=== PATIENT | female | born 1955 | race Caucasian/White ===

== ENCOUNTER 2017-07-28 13:53 | Inpatient (IN) ==
[2017-07-28] MEDS ORDERED: HYDROcodone/CHLORPHENIRAMINE ER 5 ML UDCUP PO ONE ×2 (14:36→14:53)
[2017-07-28] MEDS ORDERED: ALBUTEROL/IPRATROPIUM 3 ML NEB RESP TX STA (14:36)
[2017-07-28 15:07] LABS: Basophils % 0.1 % (0.0-0.8); Hematocrit 33.8 VOL% (35.7-47.0); Hemoglobin 11.1 GM/DL (12.0-16.0); Immature Granulocytes % 0.5 %; Immature Granulocytes Absolute 0.12 #; Lymphocytes # 0.5 10*3/uL (1.4-4.0); Lymphocytes % 2.2 % (21.3-54.2); Mean Corpuscular HGB Conc 32.8 GM/DL (32-36); Mean Corpuscular Hemoglobin 31 PG (27-34); Mean Corpuscular Volume 93.1 FL (87-102); Mean Platelet Volume 9.3 FL (9.6-12.0); Monocytes # 1.3 10*3/uL (0.11-0.8); Monocytes % 5.8 % (1.7-12.7); Neutrophils # 20.9 10*3/uL (1.4-7.4); Neutrophils % 91.4 % (38.7-73.9); Platelet Count 396 T/CUMM (130-400); Red Blood Count 3.63 MC/CUMM (3.8-5.5); Red Cell Distribution Width 13.4 % (9.3-17.3); White Blood Count 22.9 T/CUMM (4-12)
[2017-07-28 15:12] LABS: Albumin 3.2 G/DL (3.4-5.0); Bilirubin,Total 0.4 MG/DL (0.2-1.0); Calcium 9.1 MG/DL (8.5-10.1); Osmolality,Calculated 280.7 MOS/KG (273-304); Potassium 3.7 MMOL/L (3.5-5.1); Total Protein 7.7 G/DL (6.4-8.3)
[2017-07-28] MEDS ORDERED: cefTRIAXone 1,000 MG in SODIUM CHLORIDE 0.9% 100 ML IV STA (15:17)
[2017-07-28] MEDS ORDERED: ONDANSETRON 4 MG/2 ML VIAL IV PRN (15:46)
[2017-07-28] MEDS ORDERED: SODIUM CHLORIDE 0.9% 1,000 ML IV ONE (15:49)
[2017-07-28] MEDS ORDERED: cefTRIAXone 1,000 MG VIAL ONE (16:04)
[2017-07-28] MEDS ORDERED: cefTRIAXone 1,000 MG in SYRINGE 1 EACH IV SCH (17:00)
[2017-07-28] MEDS: ALBUTEROL/IPRATROPIUM 3 ML NEB RESP TX SCH (20:10)
[2017-07-28] MEDS: SODIUM CHLORIDE 0.9% 1,000 ML IV SCH (23:47)
[2017-07-29] MEDS: ALBUTEROL/IPRATROPIUM 3 ML NEB RESP TX SCH ×5 (00:39→23:49)
[2017-07-29] MEDS: SODIUM CHLORIDE 0.9% 1,000 ML IV SCH ×3 (03:55→19:03)
[2017-07-29 06:35] LABS: Basophils % 0.1 % (0.0-0.8); Eosinophils % 0.2 % (0.00-10.9); Hematocrit 29.1 VOL% (35.7-47.0); Hemoglobin 9.6 GM/DL (12.0-16.0); Immature Granulocytes % 0.4 %; Immature Granulocytes Absolute 0.06 #; Lymphocytes % 7.1 % (21.3-54.2); Mean Corpuscular Hemoglobin 31 PG (27-34); Mean Corpuscular Volume 92.7 FL (87-102); Mean Platelet Volume 9.3 FL (9.6-12.0); Monocytes # 0.9 10*3/uL (0.11-0.8); Monocytes % 6.4 % (1.7-12.7); Neutrophils # 11.5 10*3/uL (1.4-7.4); Neutrophils % 85.8 % (38.7-73.9); Platelet Count 338 T/CUMM (130-400); Red Blood Count 3.14 MC/CUMM (3.8-5.5); Red Cell Distribution Width 14.1 % (9.3-17.3); White Blood Count 13.4 T/CUMM (4-12)
[2017-07-29 06:58] LABS: PT Patient Result 10.3 SECS; Partial Thromboplastin Time 30.8 SECS (0-40)
[2017-07-29 07:04] LABS: Calcium 8.4 MG/DL (8.5-10.1); Osmolality,Calculated 282.3 MOS/KG (273-304); Potassium 3.5 MMOL/L (3.5-5.1)
[2017-07-29 07:15] LABS: Thyroid Stimulating Hormone 0.605 uIU/ml (0.358-3.74)
[2017-07-29] MEDS: PANTOPRAZOLE 40 MG TABLET PO SCH ×2 (09:49→11:26)
[2017-07-29] MEDS: cefTRIAXone 1,000 MG in SYRINGE 1 EACH IV SCH (18:54)
[2017-07-30] MEDS: SODIUM CHLORIDE 0.9% 1,000 ML IV SCH ×3 (03:08→19:41)
[2017-07-30] MEDS: ALBUTEROL/IPRATROPIUM 3 ML NEB RESP TX SCH ×3 (07:23→20:37)
[2017-07-30] MEDS: PANTOPRAZOLE 40 MG TABLET PO SCH (12:36)
[2017-07-30] MEDS: DOXYCYCLINE HYCLATE INJ 100 MG in SODIUM CHLORIDE 0.9% 100 ML IV SCH (15:44)
[2017-07-30] MEDS: cefTRIAXone 1,000 MG in SYRINGE 1 EACH IV SCH (17:15)
[2017-07-31] MEDS: DOXYCYCLINE HYCLATE INJ 100 MG in SODIUM CHLORIDE 0.9% 100 ML IV SCH ×2 (00:06→13:28)
[2017-07-31] MEDS: ALBUTEROL/IPRATROPIUM 3 ML NEB RESP TX SCH ×4 (00:48→19:28)
[2017-07-31] MEDS: SODIUM CHLORIDE 0.9% 1,000 ML IV SCH ×4 (02:18→22:20)
[2017-07-31] MEDS: PANTOPRAZOLE 40 MG TABLET PO SCH (09:38)
[2017-07-31] MEDS: cefTRIAXone 1,000 MG in SYRINGE 1 EACH IV SCH ×2 (09:43→17:19)
[2017-07-31 11:14] LABS: PT Patient Result 10.5 SECS; Partial Thromboplastin Time 31.6 SECS (0-40)
[2017-07-31] MEDS: ACETYLCYSTEINE 20% 800 MG/4 ML VIAL RESP TX SCH ×2 (13:07→19:28)
[2017-08-01] MEDS: ALBUTEROL/IPRATROPIUM 3 ML NEB RESP TX SCH ×4 (00:30→19:54)
[2017-08-01] MEDS: ACETYLCYSTEINE 20% 800 MG/4 ML VIAL RESP TX SCH ×4 (00:30→20:48)
[2017-08-01] MEDS: DOXYCYCLINE HYCLATE INJ 100 MG in SODIUM CHLORIDE 0.9% 100 ML IV SCH ×2 (00:37→12:45)
[2017-08-01] MEDS: ALBUTEROL 2.5 MG/3 ML NEB RESP TX PRN (03:41)
[2017-08-01 06:26] LABS: Calcium 8.4 MG/DL (8.5-10.1); Osmolality,Calculated 279.3 MOS/KG (273-304); Potassium 3.1 MMOL/L (3.5-5.1)
[2017-08-01] MEDS: SODIUM CHLORIDE 0.9% 1,000 ML IV SCH (06:42)
[2017-08-01] MEDS ORDERED: LIDOCAINE 2% 20 ML VIAL RESP TX ONE (07:00)
[2017-08-01] MEDS ORDERED: ATROPINE 0.4 MG/1 ML VIAL IM ONE (07:00)
[2017-08-01] MEDS ORDERED: MIDAZOLAM 2 MG/2 ML VIAL IV ONE (07:00)
[2017-08-01] MEDS ORDERED: LIDOCAINE 1% 20 ML VIAL MISC INJ ONE (07:00)
[2017-08-01] MEDS ORDERED: POTASSIUM CHLORIDE RIDER 10 MEQ in PREMIX 1 EACH IV PRN (07:03)
[2017-08-01] MEDS ORDERED: MIDAZOLAM 2 MG/2 ML VIAL ONE (07:25)
[2017-08-01] MEDS: POTASSIUM CHLORIDE 20 MEQ TABLET PO PRN ×3 (07:25→13:00)
[2017-08-01] MEDS ORDERED: FUROSEMIDE 20 MG/2 ML VIAL IV ONE (08:32)
[2017-08-01] MEDS: CEFEPIME 1,000 MG in SYRINGE 1 EACH IV SCH ×2 (09:45→21:01)
[2017-08-01] MEDS: VANCOMYCIN INJ 1,250 MG in SODIUM CHLORIDE 0.9% 250 ML IV SCH ×2 (09:50→22:04)
[2017-08-01] MEDS: PANTOPRAZOLE 40 MG TABLET PO SCH (10:30)
[2017-08-02] MEDS: DOXYCYCLINE HYCLATE INJ 100 MG in SODIUM CHLORIDE 0.9% 100 ML IV SCH ×2 (00:07→12:10)
[2017-08-02] MEDS: ALBUTEROL/IPRATROPIUM 3 ML NEB RESP TX SCH ×3 (02:16→13:45)
[2017-08-02] MEDS: ACETYLCYSTEINE 20% 800 MG/4 ML VIAL RESP TX SCH (02:17)
[2017-08-02] MEDS ORDERED: POTASSIUM CHLORIDE 20 MEQ TABLET PO ONE (08:32)
[2017-08-02] MEDS: CEFEPIME 1,000 MG in SYRINGE 1 EACH IV SCH ×2 (09:28→21:24)
[2017-08-02] MEDS: FUROSEMIDE 20 MG/2 ML VIAL IV SCH (09:29)
[2017-08-02] MEDS: PANTOPRAZOLE 40 MG TABLET PO SCH (09:29)
[2017-08-02] MEDS: methylPREDNISolone SOD SUC 40 MG/1 ML VIAL IV SCH ×2 (09:29→21:33)
[2017-08-02] MEDS: VANCOMYCIN INJ 1,250 MG in SODIUM CHLORIDE 0.9% 250 ML IV SCH ×2 (09:37→21:25)
[2017-08-02] MEDS ORDERED: ASPIRIN 325 MG TABLET ONE (14:40)
[2017-08-02] MEDS ORDERED: NITROGLYCERIN SL 0.4 MG TABLET SL ONE (14:40)
[2017-08-02 15:07] LABS: Basophils % 0.1 % (0.0-0.8); Hematocrit 32.1 VOL% (35.7-47.0); Hemoglobin 10.9 GM/DL (12.0-16.0); Immature Granulocytes % 1.3 %; Immature Granulocytes Absolute 0.22 #; Lymphocytes # 0.4 10*3/uL (1.4-4.0); Lymphocytes % 2.4 % (21.3-54.2); Mean Corpuscular Hemoglobin 31 PG (27-34); Mean Corpuscular Volume 89.9 FL (87-102); Mean Platelet Volume 8.7 FL (9.6-12.0); Monocytes # 0.3 10*3/uL (0.11-0.8); Monocytes % 1.9 % (1.7-12.7); Neutrophils # 15.4 10*3/uL (1.4-7.4); Neutrophils % 94.3 % (38.7-73.9); Platelet Count 501 T/CUMM (130-400); Red Blood Count 3.57 MC/CUMM (3.8-5.5); Red Cell Distribution Width 14.1 % (9.3-17.3); White Blood Count 16.4 T/CUMM (4-12)
[2017-08-02] MEDS ORDERED: methylPREDNISolone SOD SUC 125 MG/2 ML VIAL ONE (15:08)
[2017-08-02 15:11] LABS: ABG Base Excess -1.3 MMOL/L (-2.5-2.5); ABG HCO3 17.9 MMOL/L (20-26); ABG PO2 77.4 MM HG (80-95); ABG TCO2 18.5 MMOL/L (23-27)
[2017-08-02 15:12] LABS: ABG Oxygen Saturation 97.2 % (95-100)
[2017-08-02 15:13] LABS: ABG PCO2 19.5 MM HG (35-48)
[2017-08-02] MEDS ORDERED: AMINOPHYLLINE 250 MG in SODIUM CHLORIDE 0.9% 100 ML IV ONE (15:14)
[2017-08-02] MEDS: ALBUTEROL 2.5 MG/3 ML NEB RESP TX PRN (15:14)
[2017-08-02] MEDS ORDERED: methylPREDNISolone SOD SUC 125 MG/2 ML VIAL IV SCH (15:30)
[2017-08-02] MEDS: MONTELUKAST 10 MG TABLET PO SCH ×2 (15:31→21:25)
[2017-08-02] MEDS: methylPREDNISolone SOD SUC 125 MG/2 ML VIAL IV SCH (15:32)
[2017-08-02 15:42] LABS: Band Neutrophils 1 % (0-10); Lymphocytes 1 % (20-55); Platelet Estimate Increased; Segmented Neutrophils 98 % (50-85)
[2017-08-02 15:43] LABS: Total Cells Counted 100
[2017-08-02 16:50] LABS: Albumin 2.4 G/DL (3.4-5.0); Bilirubin,Total 0.6 MG/DL (0.2-1.0); Calcium 8.4 MG/DL (8.5-10.1); Osmolality,Calculated 283.3 MOS/KG (273-304); Potassium 3.6 MMOL/L (3.5-5.1); Total Protein 6.2 G/DL (6.4-8.3); Troponin I Only < 0.015 NG/ML (0.00-0.045)
[2017-08-02] MEDS: AMINOPHYLLINE 500 MG in SODIUM CHLORIDE 0.9% 480 ML IV SCH (18:04)
[2017-08-02] MEDS: DORNASE ALFA 2.5 MG/2.5 ML VIAL RESP TX SCH (19:41)
[2017-08-02] MEDS: IPRATROPIUM 500 MCG/2.5 ML NEB RESP TX SCH (19:41)
[2017-08-02] MEDS: FLUoxetine 20 MG CAPSULE PO SCH ×2 (21:25→21:32)
[2017-08-02] MEDS: QUEtiapine 25 MG TABLET PO SCH (21:25)
[2017-08-03] MEDS: IPRATROPIUM 500 MCG/2.5 ML NEB RESP TX SCH ×4 (00:22→20:32)
[2017-08-03] MEDS: methylPREDNISolone SOD SUC 125 MG/2 ML VIAL IV SCH ×2 (01:54→08:37)
[2017-08-03] MEDS: DOXYCYCLINE HYCLATE INJ 100 MG in SODIUM CHLORIDE 0.9% 100 ML IV SCH ×3 (01:54→19:01)
[2017-08-03 03:22] LABS: Basophils % 0.1 % (0.0-0.8); Hematocrit 29.8 VOL% (35.7-47.0); Hemoglobin 9.8 GM/DL (12.0-16.0); Immature Granulocytes % 1.2 %; Immature Granulocytes Absolute 0.23 #; Lymphocytes # 0.5 10*3/uL (1.4-4.0); Lymphocytes % 2.8 % (21.3-54.2); Mean Corpuscular HGB Conc 32.9 GM/DL (32-36); Mean Corpuscular Hemoglobin 30 PG (27-34); Mean Corpuscular Volume 91.4 FL (87-102); Mean Platelet Volume 8.9 FL (9.6-12.0); Monocytes # 0.6 10*3/uL (0.11-0.8); Monocytes % 3.4 % (1.7-12.7); Neutrophils # 17.3 10*3/uL (1.4-7.4); Neutrophils % 92.5 % (38.7-73.9); Platelet Count 515 T/CUMM (130-400); Red Blood Count 3.26 MC/CUMM (3.8-5.5); Red Cell Distribution Width 14.1 % (9.3-17.3); White Blood Count 18.7 T/CUMM (4-12)
[2017-08-03 03:49] LABS: Calcium 8.5 MG/DL (8.5-10.1); Osmolality,Calculated 284.1 MOS/KG (273-304); Potassium 3.8 MMOL/L (3.5-5.1)
[2017-08-03 03:51] LABS: ABG Base Excess -1.1 MMOL/L (-2.5-2.5); ABG HCO3 21.5 MMOL/L (20-26); ABG Oxygen Saturation 91.9 % (95-100); ABG PCO2 29.3 MM HG (35-48); ABG PH 7.484 (7.35-7.45); ABG PO2 58.7 MM HG (80-95); ABG TCO2 22.4 MMOL/L (23-27); Allen Test Positive; Pt O2 Delivery Device Simple Mask
[2017-08-03 04:40] LABS: Calcium 8.5 MG/DL (8.5-10.1); Potassium 3.8 MMOL/L (3.5-5.1)
[2017-08-03 05:07] LABS: Hypochromasia 1+; Lymphocytes 5 % (20-55); Segmented Neutrophils 92 % (50-85); Total Cells Counted 100
[2017-08-03 05:08] LABS: Platelet Estimate Increased
[2017-08-03] MEDS: LEVOTHYROXINE 150 MCG TABLET PO SCH (06:38)
[2017-08-03] MEDS: DORNASE ALFA 2.5 MG/2.5 ML VIAL RESP TX SCH ×2 (08:10→20:36)
[2017-08-03] MEDS: MONTELUKAST 10 MG TABLET PO SCH ×2 (08:32→21:23)
[2017-08-03] MEDS: CEFEPIME 1,000 MG in SYRINGE 1 EACH IV SCH ×2 (08:32→21:26)
[2017-08-03] MEDS: RIVAROXABAN 20 MG TABLET PO SCH (08:32)
[2017-08-03] MEDS: PANTOPRAZOLE 40 MG TABLET PO SCH (08:32)
[2017-08-03] MEDS: FLUoxetine 20 MG CAPSULE PO SCH ×2 (08:32→08:52)
[2017-08-03] MEDS: QUEtiapine 25 MG TABLET PO SCH ×2 (08:32→22:28)
[2017-08-03] MEDS: FUROSEMIDE 20 MG/2 ML VIAL IV SCH (08:36)
[2017-08-03] MEDS: methylPREDNISolone SOD SUC 40 MG/1 ML VIAL IV SCH ×2 (08:51→21:23)
[2017-08-03] MEDS: CLORAZEPATE 3.75 MG TABLET PO PRN ×2 (10:49→16:00)
[2017-08-03] MEDS: VANCOMYCIN INJ 1,250 MG in SODIUM CHLORIDE 0.9% 250 ML IV SCH ×2 (10:50→23:00)
[2017-08-03] MEDS ORDERED: FLUoxetine 20 MG CAPSULE PO ONE (11:00)
[2017-08-03] MEDS: oxyCODONE/ACETAMINOPHEN 5-325 MG TABLET PO PRN ×2 (18:12→21:22)
[2017-08-03] MEDS: ChlordiazePOXIDE/CLIDINIUM 5-2.5 MG CAPSULE PO SCH ×2 (18:23→22:27)
[2017-08-03] MEDS ORDERED: NON-FORMULARY MEDICATION (Morphine Sulfate/Naltrexone [Embeda 20/0.8] 1 CAPSULE) PO SCH (21:00)
[2017-08-03] MEDS: QUEtiapine 100 MG TABLET PO SCH (21:23)
[2017-08-03] MEDS: CYCLOBENZAPRINE 10 MG TABLET PO SCH (22:27)
[2017-08-03] MEDS: ZALEPLON 5 MG CAPSULE PO SCH (22:28)
[2017-08-04] MEDS: IPRATROPIUM 500 MCG/2.5 ML NEB RESP TX SCH ×4 (00:48→20:57)
[2017-08-04] MEDS: AMINOPHYLLINE 500 MG in SODIUM CHLORIDE 0.9% 480 ML IV SCH ×2 (04:52→08:50)
[2017-08-04 05:31] LABS: Calcium 8.7 MG/DL (8.5-10.1); Osmolality,Calculated 290.8 MOS/KG (273-304); Potassium 3.6 MMOL/L (3.5-5.1)
[2017-08-04] MEDS: DOXYCYCLINE HYCLATE INJ 100 MG in SODIUM CHLORIDE 0.9% 100 ML IV SCH ×2 (06:08→18:03)
[2017-08-04] MEDS: LEVOTHYROXINE 150 MCG TABLET PO SCH (06:08)
[2017-08-04] MEDS: QUEtiapine 25 MG TABLET PO SCH ×2 (08:50→21:42)
[2017-08-04] MEDS: MONTELUKAST 10 MG TABLET PO SCH ×2 (08:50→21:41)
[2017-08-04] MEDS: ATORVASTATIN 40 MG TABLET PO SCH (08:50)
[2017-08-04] MEDS: BENZONATATE 100 MG CAPSULE PO SCH ×3 (08:51→21:38)
[2017-08-04] MEDS: POTASSIUM CHLORIDE 20 MEQ TABLET PO PRN ×2 (08:51→12:23)
[2017-08-04] MEDS: FLUoxetine 20 MG CAPSULE PO SCH (08:51)
[2017-08-04] MEDS: RIVAROXABAN 20 MG TABLET PO SCH (08:51)
[2017-08-04] MEDS: ChlordiazePOXIDE/CLIDINIUM 5-2.5 MG CAPSULE PO SCH ×4 (08:52→21:42)
[2017-08-04] MEDS: ALBUTEROL 2 MG TABLET PO SCH ×2 (08:52→15:34)
[2017-08-04] MEDS: ACETAMINOPHEN 325 MG TABLET PO PRN ×2 (08:52→18:30)
[2017-08-04] MEDS: HYDROcodone/CHLORPHENIRAMINE ER 5 ML UDCUP PO SCH ×2 (08:53→21:48)
[2017-08-04] MEDS: methylPREDNISolone SOD SUC 40 MG/1 ML VIAL IV SCH ×2 (08:56→21:40)
[2017-08-04] MEDS: CEFEPIME 1,000 MG in SYRINGE 1 EACH IV SCH ×2 (08:56→21:34)
[2017-08-04] MEDS ORDERED: PANTOPRAZOLE 40 MG TABLET PO SCH (09:00)
[2017-08-04] MEDS ORDERED: MONTELUKAST 10 MG TABLET PO SCH (09:00)
[2017-08-04] MEDS: DORNASE ALFA 2.5 MG/2.5 ML VIAL RESP TX SCH ×2 (09:28→20:57)
[2017-08-04] MEDS: VANCOMYCIN INJ 1,250 MG in SODIUM CHLORIDE 0.9% 250 ML IV SCH ×2 (09:32→21:52)
[2017-08-04 21:11] LABS: Mycoplasma pneumoniae PCR Negative; Specimen Source BRONCHIAL WASHING
[2017-08-04] MEDS: oxyCODONE/ACETAMINOPHEN 5-325 MG TABLET PO PRN (21:39)
[2017-08-04] MEDS: QUEtiapine 100 MG TABLET PO SCH (21:41)
[2017-08-04] MEDS: CYCLOBENZAPRINE 10 MG TABLET PO SCH (21:42)
[2017-08-04] MEDS: ZALEPLON 5 MG CAPSULE PO SCH (21:42)
[2017-08-05] MEDS: ALBUTEROL 2 MG TABLET PO SCH ×4 (00:39→22:04)
[2017-08-05] MEDS: IPRATROPIUM 500 MCG/2.5 ML NEB RESP TX SCH ×4 (01:03→19:33)
[2017-08-05 05:01] LABS: Albumin 2.2 G/DL (3.4-5.0); Bilirubin,Total 0.8 MG/DL (0.2-1.0); Calcium 8.5 MG/DL (8.5-10.1); Osmolality,Calculated 296.6 MOS/KG (273-304); Potassium 3.7 MMOL/L (3.5-5.1); Total Protein 5.7 G/DL (6.4-8.3)
[2017-08-05] MEDS: DOXYCYCLINE HYCLATE INJ 100 MG in SODIUM CHLORIDE 0.9% 100 ML IV SCH ×2 (06:11→17:57)
[2017-08-05] MEDS: LEVOTHYROXINE 150 MCG TABLET PO SCH (06:11)
[2017-08-05] MEDS: oxyCODONE/ACETAMINOPHEN 5-325 MG TABLET PO PRN ×2 (06:11→19:56)
[2017-08-05] MEDS: DORNASE ALFA 2.5 MG/2.5 ML VIAL RESP TX SCH ×2 (07:15→19:33)
[2017-08-05] MEDS: ATORVASTATIN 40 MG TABLET PO SCH (08:26)
[2017-08-05] MEDS: BENZONATATE 100 MG CAPSULE PO SCH ×3 (08:26→21:05)
[2017-08-05] MEDS: QUEtiapine 25 MG TABLET PO SCH ×2 (08:26→21:06)
[2017-08-05] MEDS: RIVAROXABAN 20 MG TABLET PO SCH (08:26)
[2017-08-05] MEDS: FLUoxetine 20 MG CAPSULE PO SCH (08:26)
[2017-08-05] MEDS: HYDROcodone/CHLORPHENIRAMINE ER 5 ML UDCUP PO SCH ×2 (08:27→21:06)
[2017-08-05] MEDS: ChlordiazePOXIDE/CLIDINIUM 5-2.5 MG CAPSULE PO SCH ×4 (08:28→21:06)
[2017-08-05] MEDS: MONTELUKAST 10 MG TABLET PO SCH ×2 (08:30→21:06)
[2017-08-05] MEDS: CEFEPIME 1,000 MG in SYRINGE 1 EACH IV SCH ×2 (08:31→21:06)
[2017-08-05] MEDS: AMINOPHYLLINE 500 MG in SODIUM CHLORIDE 0.9% 480 ML IV SCH (08:38)
[2017-08-05] MEDS: VANCOMYCIN INJ 1,250 MG in SODIUM CHLORIDE 0.9% 250 ML IV SCH ×2 (10:30→22:58)
[2017-08-05] MEDS: CLORAZEPATE 3.75 MG TABLET PO PRN (14:40)
[2017-08-05] MEDS: ZALEPLON 5 MG CAPSULE PO SCH (21:05)
[2017-08-05] MEDS: CYCLOBENZAPRINE 10 MG TABLET PO SCH (21:06)
[2017-08-05] MEDS: QUEtiapine 100 MG TABLET PO SCH (21:06)
[2017-08-06] MEDS: IPRATROPIUM 500 MCG/2.5 ML NEB RESP TX SCH ×4 (00:17→19:56)
[2017-08-06 04:28] LABS: Basophils % 0.1 % (0.0-0.8); Eosinophils # 0.2 10*3/uL (0.0-0.87); Eosinophils % 1.2 % (0.00-10.9); Hematocrit 30.1 VOL% (35.7-47.0); Immature Granulocytes % 3.9 %; Lymphocytes # 0.6 10*3/uL (1.4-4.0); Lymphocytes % 3.5 % (21.3-54.2); Mean Corpuscular HGB Conc 33.2 GM/DL (32-36); Mean Corpuscular Hemoglobin 30 PG (27-34); Mean Corpuscular Volume 90.1 FL (87-102); Mean Platelet Volume 8.8 FL (9.6-12.0); Monocytes # 0.4 10*3/uL (0.11-0.8); NRBC # 0.09 10*3/uL; Neutrophils # 15.9 10*3/uL (1.4-7.4); Neutrophils % 89.3 % (38.7-73.9); Platelet Count 472 T/CUMM (130-400); Red Blood Count 3.34 MC/CUMM (3.8-5.5); Red Cell Distribution Width 14.6 % (9.3-17.3); White Blood Count 17.8 T/CUMM (4-12)
[2017-08-06 04:50] LABS: Calcium 8.1 MG/DL (8.5-10.1); Potassium 3.6 MMOL/L (3.5-5.1)
[2017-08-06 05:15] LABS: Eosinophils 3 % (0-10); Giant Platelets Few; Hypochromasia 1+; Lymphocytes 7 % (20-55); Platelet Estimate Adequate; Segmented Neutrophils 87 % (50-85); Total Cells Counted 100
[2017-08-06] MEDS: LEVOTHYROXINE 150 MCG TABLET PO SCH (06:30)
[2017-08-06] MEDS: ChlordiazePOXIDE/CLIDINIUM 5-2.5 MG CAPSULE PO SCH ×4 (06:30→21:24)
[2017-08-06] MEDS: AMINOPHYLLINE 500 MG in SODIUM CHLORIDE 0.9% 480 ML IV SCH ×2 (06:30→09:14)
[2017-08-06] MEDS: ALBUTEROL 2 MG TABLET PO SCH ×3 (06:30→21:22)
[2017-08-06] MEDS: DOXYCYCLINE HYCLATE INJ 100 MG in SODIUM CHLORIDE 0.9% 100 ML IV SCH ×2 (06:30→19:02)
[2017-08-06] MEDS ORDERED: POTASSIUM CHLORIDE RIDER 10 MEQ in PREMIX 1 EACH IV PRN (06:35)
[2017-08-06] MEDS: POTASSIUM CHLORIDE RIDER 20 MEQ in PREMIX 1 EACH IV PRN (06:53)
[2017-08-06] MEDS: DORNASE ALFA 2.5 MG/2.5 ML VIAL RESP TX SCH ×2 (07:30→20:04)
[2017-08-06 08:34] LABS: Apearance,Urine Slightly Hazy (Clear); Bacteria,Urine Occasional /HPF (Few); Bilirubin,Urine Negative (Negative); Blood, Urine Negative (Negative); Glucose,Urine (UA) Negative (Negative); Ketones,Urine Negative (Negative); Mucus,Urine Occasional /LPF (Occasional); Nitrite,Urine Negative (Negative); Protein,Urine Negative; RBC,Urine <1 /HPF (0-4); Squamous Epithelial Cell,Urine Occasional /HPF (0-10); Urine Color Yellow (Yellow); Urine Specific Gravity 1.014 (1.001-1.035); Urine Urobilinogen < 2.0 EU/DL (0.2-1.0); WBC,Urine <1 /HPF (0-6)
[2017-08-06] MEDS: RIVAROXABAN 20 MG TABLET PO SCH (08:59)
[2017-08-06] MEDS: MONTELUKAST 10 MG TABLET PO SCH ×2 (08:59→21:23)
[2017-08-06] MEDS: ATORVASTATIN 40 MG TABLET PO SCH (08:59)
[2017-08-06] MEDS: ACETAMINOPHEN 325 MG TABLET PO PRN (08:59)
[2017-08-06] MEDS: QUEtiapine 25 MG TABLET PO SCH ×2 (08:59→21:23)
[2017-08-06] MEDS: BENZONATATE 100 MG CAPSULE PO SCH ×3 (09:00→21:22)
[2017-08-06] MEDS: FLUoxetine 20 MG CAPSULE PO SCH (09:00)
[2017-08-06] MEDS: VANCOMYCIN INJ 1,250 MG in SODIUM CHLORIDE 0.9% 250 ML IV SCH ×2 (09:00→17:06)
[2017-08-06] MEDS: CEFEPIME 1,000 MG in SYRINGE 1 EACH IV SCH ×2 (09:01→21:23)
[2017-08-06] MEDS: HYDROcodone/CHLORPHENIRAMINE ER 5 ML UDCUP PO SCH ×2 (10:14→21:23)
[2017-08-06] MEDS: CLORAZEPATE 3.75 MG TABLET PO PRN (13:38)
[2017-08-06] MEDS: oxyCODONE/ACETAMINOPHEN 5-325 MG TABLET PO PRN ×2 (17:06→19:11)
[2017-08-06] MEDS: amLODIPine 5 MG TABLET PO SCH (19:11)
[2017-08-06] MEDS: ZALEPLON 5 MG CAPSULE PO SCH (21:22)
[2017-08-06] MEDS: QUEtiapine 100 MG TABLET PO SCH (21:23)
[2017-08-06] MEDS: CYCLOBENZAPRINE 10 MG TABLET PO SCH (21:24)
[2017-08-07] MEDS: VANCOMYCIN INJ 1,250 MG in SODIUM CHLORIDE 0.9% 250 ML IV SCH ×3 (01:10→18:43)
[2017-08-07] MEDS: IPRATROPIUM 500 MCG/2.5 ML NEB RESP TX SCH ×4 (02:19→18:15)
[2017-08-07] MEDS: AMINOPHYLLINE 500 MG in SODIUM CHLORIDE 0.9% 480 ML IV SCH (05:14)
[2017-08-07 06:02] LABS: Basophils % 0.1 % (0.0-0.8); Eosinophils # 0.1 10*3/uL (0.0-0.87); Eosinophils % 0.6 % (0.00-10.9); Hematocrit 30.1 VOL% (35.7-47.0); Hemoglobin 10.2 GM/DL (12.0-16.0); Immature Granulocytes % 3.4 %; Immature Granulocytes Absolute 0.74 #; Lymphocytes # 0.4 10*3/uL (1.4-4.0); Lymphocytes % 1.8 % (21.3-54.2); Mean Corpuscular HGB Conc 33.9 GM/DL (32-36); Mean Corpuscular Hemoglobin 30 PG (27-34); Mean Corpuscular Volume 89.9 FL (87-102); Mean Platelet Volume 9.2 FL (9.6-12.0); Monocytes # 0.3 10*3/uL (0.11-0.8); Monocytes % 1.6 % (1.7-12.7); NRBC # 0.05 10*3/uL; Neutrophils # 19.8 10*3/uL (1.4-7.4); Neutrophils % 92.5 % (38.7-73.9); Platelet Count 259 T/CUMM (130-400); Red Blood Count 3.35 MC/CUMM (3.8-5.5); Red Cell Distribution Width 14.6 % (9.3-17.3); White Blood Count 21.5 T/CUMM (4-12)
[2017-08-07 06:22] LABS: Calcium 7.9 MG/DL (8.5-10.1); Osmolality,Calculated 281.3 MOS/KG (273-304); Potassium 3.7 MMOL/L (3.5-5.1)
[2017-08-07 06:28] LABS: Eosinophils 2 % (0-10); Hypochromasia Slight; Lymphocytes 4 % (20-55); Platelet Estimate Adequate; Polychromasia Slight; Segmented Neutrophils 90 % (50-85); Total Cells Counted 100
[2017-08-07] MEDS: DORNASE ALFA 2.5 MG/2.5 ML VIAL RESP TX SCH ×2 (07:13→18:15)
[2017-08-07] MEDS: ChlordiazePOXIDE/CLIDINIUM 5-2.5 MG CAPSULE PO SCH ×4 (07:51→20:57)
[2017-08-07] MEDS: HYDROcodone/CHLORPHENIRAMINE ER 5 ML UDCUP PO SCH ×2 (08:08→20:55)
[2017-08-07] MEDS: POTASSIUM CHLORIDE RIDER 20 MEQ in PREMIX 1 EACH IV PRN (08:08)
[2017-08-07] MEDS: DOXYCYCLINE HYCLATE INJ 100 MG in SODIUM CHLORIDE 0.9% 100 ML IV SCH (08:08)
[2017-08-07] MEDS: MONTELUKAST 10 MG TABLET PO SCH ×2 (08:09→20:55)
[2017-08-07] MEDS: ATORVASTATIN 40 MG TABLET PO SCH (08:10)
[2017-08-07] MEDS: BENZONATATE 100 MG CAPSULE PO SCH ×3 (08:10→20:56)
[2017-08-07] MEDS: CLORAZEPATE 3.75 MG TABLET PO PRN (08:10)
[2017-08-07] MEDS: QUEtiapine 25 MG TABLET PO SCH ×2 (08:10→20:57)
[2017-08-07] MEDS: FLUoxetine 20 MG CAPSULE PO SCH (08:10)
[2017-08-07] MEDS: LEVOTHYROXINE 150 MCG TABLET PO SCH (08:11)
[2017-08-07] MEDS: oxyCODONE/ACETAMINOPHEN 5-325 MG TABLET PO PRN ×3 (08:11→19:47)
[2017-08-07] MEDS: RIVAROXABAN 20 MG TABLET PO SCH (08:11)
[2017-08-07] MEDS: amLODIPine 5 MG TABLET PO SCH (08:12)
[2017-08-07] MEDS: ALBUTEROL 2 MG TABLET PO SCH ×2 (08:14→14:48)
[2017-08-07] MEDS: CEFEPIME 1,000 MG in SYRINGE 1 EACH IV SCH ×2 (08:15→20:57)
[2017-08-07] MEDS ORDERED: GLUCAGON 1 MG VIAL IM PRN (10:35)
[2017-08-07] MEDS ORDERED: DEXTROSE 50% 25 GM/50 ML VIAL IV PRN (10:35)
[2017-08-07] MEDS: INSULIN REGULAR 100 UNIT/ML SUBCUT SCH ×2 (12:51→18:34)
[2017-08-07] MEDS: ZALEPLON 5 MG CAPSULE PO SCH (20:55)
[2017-08-07] MEDS: QUEtiapine 100 MG TABLET PO SCH (20:56)
[2017-08-07] MEDS: CYCLOBENZAPRINE 10 MG TABLET PO SCH (20:57)
[2017-08-08] MEDS: CLORAZEPATE 3.75 MG TABLET PO PRN ×2 (00:12→08:49)
[2017-08-08] MEDS: ALBUTEROL 2 MG TABLET PO SCH ×3 (00:12→13:01)
[2017-08-08] MEDS: AMINOPHYLLINE 500 MG in SODIUM CHLORIDE 0.9% 480 ML IV SCH ×2 (00:13→19:30)
[2017-08-08] MEDS: IPRATROPIUM 500 MCG/2.5 ML NEB RESP TX SCH ×4 (00:25→19:49)
[2017-08-08] MEDS: INSULIN REGULAR 100 UNIT/ML SUBCUT SCH ×5 (00:57→23:50)
[2017-08-08] MEDS: VANCOMYCIN INJ 1,250 MG in SODIUM CHLORIDE 0.9% 250 ML IV SCH ×3 (01:38→17:37)
[2017-08-08] MEDS: oxyCODONE/ACETAMINOPHEN 5-325 MG TABLET PO PRN ×2 (01:59→06:47)
[2017-08-08 05:07] LABS: ABG Base Excess 0.6 MMOL/L (-2.5-2.5); ABG HCO3 24.6 MMOL/L (20-26); ABG Oxygen Saturation 96.4 % (95-100); ABG PCO2 37.4 MM HG (35-48); ABG PH 7.436 (7.35-7.45); ABG PO2 89.5 MM HG (80-95); ABG TCO2 25.8 MMOL/L (23-27); Allen Test Positive; Pt O2 Delivery Device CPAP
[2017-08-08 06:02] LABS: Calcium 7.5 MG/DL (8.5-10.1); Osmolality,Calculated 280.4 MOS/KG (273-304); Potassium 3.8 MMOL/L (3.5-5.1)
[2017-08-08] MEDS: LEVOTHYROXINE 150 MCG TABLET PO SCH (06:03)
[2017-08-08 06:12] LABS: Prealbumin 6.2 MG/DL (20-40)
[2017-08-08] MEDS: ChlordiazePOXIDE/CLIDINIUM 5-2.5 MG CAPSULE PO SCH ×4 (07:11→22:33)
[2017-08-08] MEDS: FLUoxetine 20 MG CAPSULE PO SCH (08:47)
[2017-08-08] MEDS: QUEtiapine 25 MG TABLET PO SCH ×2 (08:49→22:33)
[2017-08-08] MEDS ORDERED: PROPOFOL 1,000 MG/100 ML BOTTLE IV ONE (08:52)
[2017-08-08] MEDS ORDERED: MIDAZOLAM 2 MG/2 ML VIAL ONE (08:53)
[2017-08-08] MEDS: PROPOFOL 1,000 MG/100 ML BOTTLE IV SCH ×2 (09:01→15:28)
[2017-08-08] MEDS ORDERED: SUCCINYLCHOLINE 200 MG/10 ML VIAL ONE (09:17)
[2017-08-08] MEDS ORDERED: PROPOFOL 200 MG/20 ML VIAL IV ONE (09:17)
[2017-08-08] MEDS ORDERED: VECURONIUM 10 MG VIAL IV ONE ×2 (09:20)
[2017-08-08 10:06] LABS: Pt O2 Delivery Device Ventilator
[2017-08-08 10:07] LABS: ABG Base Excess -1.4 MMOL/L (-2.5-2.5); ABG HCO3 23.2 MMOL/L (20-26); ABG PH 7.212 (7.35-7.45); ABG TCO2 26.1 MMOL/L (23-27)
[2017-08-08] MEDS: ATORVASTATIN 40 MG TABLET PO SCH (10:10)
[2017-08-08] MEDS: BENZONATATE 100 MG CAPSULE PO SCH ×3 (10:10→22:34)
[2017-08-08] MEDS: HYDROcodone/CHLORPHENIRAMINE ER 5 ML UDCUP PO SCH ×2 (10:10→22:34)
[2017-08-08] MEDS: MONTELUKAST 10 MG TABLET PO SCH ×2 (10:10→22:34)
[2017-08-08] MEDS: RIVAROXABAN 20 MG TABLET PO SCH (10:10)
[2017-08-08] MEDS: amLODIPine 5 MG TABLET PO SCH (10:10)
[2017-08-08] MEDS: CEFEPIME 1,000 MG in SYRINGE 1 EACH IV SCH ×2 (10:12→22:45)
[2017-08-08] MEDS: DORNASE ALFA 2.5 MG/2.5 ML VIAL RESP TX SCH ×2 (10:12→19:49)
[2017-08-08] MEDS: POTASSIUM CHLORIDE RIDER 20 MEQ in PREMIX 1 EACH IV PRN (10:13)
[2017-08-08] MEDS: fentaNYL INJ 1,250 MCG in SODIUM CHLORIDE 0.45% 225 ML IV SCH ×3 (10:50→20:45)
[2017-08-08 11:27] LABS: ABG Base Excess -1.2 MMOL/L (-2.5-2.5); ABG HCO3 23.2 MMOL/L (20-26); ABG Oxygen Saturation 89.9 % (95-100); ABG PCO2 57.6 MM HG (35-48); ABG PH 7.272 (7.35-7.45); ABG TCO2 24.5 MMOL/L (23-27)
[2017-08-08 11:46] LABS: Alternaria tenuis/alternat IgG <2.0 mcg/mL (<12.0); Aspergillus fumigatus IgG 7.1 mcg/mL (<46.0); Aureobasidium pullulans IgG <2.0 mcg/mL (<18.0); Micropolyspora faeni IgG <2.0 mcg/mL (<5.0); Penicillium Chrysogenum IgG 7.4 mcg/mL (<22.0); Phoma betae IgG <2.0 mcg/mL (<8.0); Thermoactinomyces vulgaris IgG 2.2 mcg/mL (<13.0)
[2017-08-08] MEDS ORDERED: SODIUM CHLORIDE 0.9% 500 ML IV ONE (13:38)
[2017-08-08] MEDS: PHENYLEPHRINE DRIP 40 MG/250 ML PREMIX IV SCH ×2 (14:16→20:25)
[2017-08-08] MEDS: QUEtiapine 100 MG TABLET PO SCH (22:33)
[2017-08-08] MEDS: CYCLOBENZAPRINE 10 MG TABLET PO SCH (22:33)
[2017-08-08] MEDS: ZALEPLON 5 MG CAPSULE PO SCH (22:34)
[2017-08-09] MEDS: fentaNYL INJ 1,250 MCG in SODIUM CHLORIDE 0.45% 225 ML IV SCH (00:05)
[2017-08-09] MEDS: IPRATROPIUM 500 MCG/2.5 ML NEB RESP TX SCH ×4 (00:46→20:38)
[2017-08-09] MEDS: ALBUTEROL 2 MG TABLET PO SCH ×4 (00:49→21:40)
[2017-08-09] MEDS: VANCOMYCIN INJ 1,250 MG in SODIUM CHLORIDE 0.9% 250 ML IV SCH ×3 (00:50→16:53)
[2017-08-09] MEDS: PHENYLEPHRINE DRIP 40 MG/250 ML PREMIX IV SCH ×4 (02:15→18:30)
[2017-08-09] MEDS: PROPOFOL 1,000 MG/100 ML BOTTLE IV SCH ×5 (02:24→18:46)
[2017-08-09] MEDS: fentaNYL INJ 2,500 MCG in SODIUM CHLORIDE 0.9% 450 ML IV SCH ×2 (03:20→13:23)
[2017-08-09 04:19] LABS: ABG HCO3 25.4 MMOL/L (20-26); ABG Oxygen Saturation 97.4 % (95-100); ABG PCO2 58.6 MM HG (35-48); ABG PH 7.255 (7.35-7.45); ABG PO2 107.2 MM HG (80-95); ABG TCO2 27.2 MMOL/L (23-27)
[2017-08-09] MEDS: INSULIN REGULAR 100 UNIT/ML SUBCUT SCH ×3 (05:47→18:45)
[2017-08-09 06:09] LABS: Calcium 7.5 MG/DL (8.5-10.1); Osmolality,Calculated 279.4 MOS/KG (273-304); Potassium 4.6 MMOL/L (3.5-5.1)
[2017-08-09] MEDS ORDERED: FUROSEMIDE 40 MG/4 ML VIAL IV ONE (06:30)
[2017-08-09 06:49] LABS: Allen Test Positive; Pt O2 Delivery Device Ventilator
[2017-08-09 06:56] LABS: ABG Base Excess -2.5 MMOL/L (-2.5-2.5); ABG PCO2 66.8 MM HG (35-48); ABG PO2 49.7 MM HG (80-95); ABG TCO2 25.1 MMOL/L (23-27)
[2017-08-09 06:59] LABS: ABG PH 7.207 (7.35-7.45)
[2017-08-09] MEDS: methylPREDNISolone SOD SUC 40 MG/1 ML VIAL IV SCH ×3 (07:29→21:40)
[2017-08-09] MEDS: DORNASE ALFA 2.5 MG/2.5 ML VIAL RESP TX SCH ×2 (07:31→20:38)
[2017-08-09] MEDS: VECURONIUM 100 MG in SODIUM CHLORIDE 0.9% 100 ML IV SCH (08:12)
[2017-08-09 08:17] LABS: Basophils % 0.1 % (0.0-0.8); Eosinophils % 3.5 % (0.00-10.9); Hematocrit 29.8 VOL% (35.7-47.0); Hemoglobin 9.4 GM/DL (12.0-16.0); Immature Granulocytes % 3.2 %; Immature Granulocytes Absolute 0.92 #; Lymphocytes # 0.5 10*3/uL (1.4-4.0); Lymphocytes % 1.8 % (21.3-54.2); Mean Corpuscular HGB Conc 31.5 GM/DL (32-36); Mean Corpuscular Hemoglobin 30 PG (27-34); Mean Corpuscular Volume 95.5 FL (87-102); Mean Platelet Volume 10.7 FL (9.6-12.0); Monocytes # 0.8 10*3/uL (0.11-0.8); Monocytes % 2.8 % (1.7-12.7); Neutrophils # 25.6 10*3/uL (1.4-7.4); Neutrophils % 88.6 % (38.7-73.9); Red Blood Count 3.12 MC/CUMM (3.8-5.5); Red Cell Distribution Width 15.1 % (9.3-17.3); White Blood Count 28.9 T/CUMM (4-12)
[2017-08-09 08:20] LABS: Platelet Count 81 T/CUMM (130-400)
[2017-08-09 08:23] LABS: ABG Base Excess -3.5 MMOL/L (-2.5-2.5); ABG HCO3 21.4 MMOL/L (20-26); ABG Oxygen Saturation 97.5 % (95-100); ABG PO2 98.6 MM HG (80-95); ABG TCO2 22.9 MMOL/L (23-27)
[2017-08-09] MEDS: amLODIPine 5 MG TABLET PO SCH (08:31)
[2017-08-09 08:45] LABS: Burr Cells Slight; Eosinophils 6 % (0-10); Giant Platelets Few; Hypochromasia 1+; Lymphocytes 2 % (20-55); Ovalocytes Slight; Platelet Estimate Decreased; Segmented Neutrophils 91 % (50-85); Total Cells Counted 100
[2017-08-09] MEDS: ChlordiazePOXIDE/CLIDINIUM 5-2.5 MG CAPSULE PO SCH ×4 (09:15→21:39)
[2017-08-09] MEDS: LEVOTHYROXINE 150 MCG TABLET PO SCH (10:23)
[2017-08-09] MEDS: RIVAROXABAN 20 MG TABLET PO SCH (10:24)
[2017-08-09] MEDS: ATORVASTATIN 40 MG TABLET PO SCH (10:25)
[2017-08-09] MEDS: MONTELUKAST 10 MG TABLET PO SCH ×2 (10:25→21:39)
[2017-08-09] MEDS: CEFEPIME 1,000 MG in SYRINGE 1 EACH IV SCH ×2 (10:25→21:40)
[2017-08-09] MEDS: FLUoxetine 20 MG CAPSULE PO SCH (10:25)
[2017-08-09] MEDS: QUEtiapine 25 MG TABLET PO SCH ×2 (10:25→21:39)
[2017-08-09] MEDS: BENZONATATE 100 MG CAPSULE PO SCH ×3 (10:25→21:39)
[2017-08-09] MEDS: HYDROcodone/CHLORPHENIRAMINE ER 5 ML UDCUP PO SCH ×2 (10:31→21:39)
[2017-08-09] MEDS: CLORAZEPATE 3.75 MG TABLET PO PRN (13:55)
[2017-08-09] MEDS: oxyCODONE/ACETAMINOPHEN 5-325 MG TABLET PO PRN (13:55)
[2017-08-09] MEDS: AMINOPHYLLINE 500 MG in SODIUM CHLORIDE 0.9% 480 ML IV SCH ×2 (13:55→16:53)
[2017-08-09] MEDS: CYCLOBENZAPRINE 10 MG TABLET PO SCH (21:21)
[2017-08-09] MEDS: ZALEPLON 5 MG CAPSULE PO SCH (21:21)
[2017-08-09] MEDS: QUEtiapine 100 MG TABLET PO SCH (21:39)
[2017-08-10] MEDS: INSULIN REGULAR 100 UNIT/ML SUBCUT SCH ×4 (00:17→18:22)
[2017-08-10] MEDS: VANCOMYCIN INJ 1,250 MG in SODIUM CHLORIDE 0.9% 250 ML IV SCH ×2 (00:18→09:35)
[2017-08-10] MEDS: PHENYLEPHRINE DRIP 40 MG/250 ML PREMIX IV SCH ×2 (00:46→06:33)
[2017-08-10] MEDS: IPRATROPIUM 500 MCG/2.5 ML NEB RESP TX SCH ×4 (00:53→19:24)
[2017-08-10] MEDS: PROPOFOL 1,000 MG/100 ML BOTTLE IV SCH ×4 (03:15→19:07)
[2017-08-10 03:50] LABS: ABG HCO3 24.4 MMOL/L (20-26); ABG Oxygen Saturation 98.4 % (95-100); ABG TCO2 27.8 MMOL/L (23-27); Allen Test Positive; Pt O2 Delivery Device Ventilator
[2017-08-10 04:00] LABS: ABG PCO2 72.5 MM HG (35-48); ABG PH 7.207 (7.35-7.45)
[2017-08-10] MEDS: fentaNYL INJ 2,500 MCG in SODIUM CHLORIDE 0.9% 450 ML IV SCH (04:20)
[2017-08-10 05:21] LABS: Osmolality,Calculated 289.1 MOS/KG (273-304); Potassium 4.5 MMOL/L (3.5-5.1)
[2017-08-10 05:48] LABS: ABG Base Excess -0.3 MMOL/L (-2.5-2.5); ABG HCO3 24.2 MMOL/L (20-26); ABG Oxygen Saturation 98.4 % (95-100); ABG PH 7.218 (7.35-7.45); ABG TCO2 27.2 MMOL/L (23-27); Allen Test Positive; Pt O2 Delivery Device Ventilator
[2017-08-10 05:51] LABS: ABG PCO2 69.7 MM HG (35-48)
[2017-08-10] MEDS: VECURONIUM 100 MG in SODIUM CHLORIDE 0.9% 100 ML IV SCH (06:35)
[2017-08-10] MEDS: ChlordiazePOXIDE/CLIDINIUM 5-2.5 MG CAPSULE PO SCH ×4 (06:41→21:09)
[2017-08-10] MEDS: ALBUTEROL 2 MG TABLET PO SCH ×3 (06:41→21:10)
[2017-08-10] MEDS: LEVOTHYROXINE 150 MCG TABLET PO SCH (06:42)
[2017-08-10] MEDS: methylPREDNISolone SOD SUC 40 MG/1 ML VIAL IV SCH ×3 (06:42→21:32)
[2017-08-10 07:32] LABS: Potassium 4.5 MMOL/L (3.5-5.1)
[2017-08-10] MEDS: DORNASE ALFA 2.5 MG/2.5 ML VIAL RESP TX SCH ×2 (07:40→20:59)
[2017-08-10] MEDS: PHENYLEPHRINE INJ 160 MG in SODIUM CHLORIDE 0.9% 234 ML IV SCH (09:51)
[2017-08-10] MEDS: RIVAROXABAN 20 MG TABLET PO SCH (09:52)
[2017-08-10] MEDS: FLUoxetine 20 MG CAPSULE PO SCH (09:54)
[2017-08-10] MEDS: ATORVASTATIN 40 MG TABLET PO SCH (09:54)
[2017-08-10] MEDS: CEFEPIME 1,000 MG in SYRINGE 1 EACH IV SCH ×2 (09:54→21:32)
[2017-08-10] MEDS: amLODIPine 5 MG TABLET PO SCH (09:54)
[2017-08-10] MEDS: MONTELUKAST 10 MG TABLET PO SCH ×2 (09:55→21:09)
[2017-08-10] MEDS: HYDROcodone/CHLORPHENIRAMINE ER 5 ML UDCUP PO SCH ×2 (09:56→21:10)
[2017-08-10] MEDS: QUEtiapine 25 MG TABLET PO SCH ×2 (10:10→21:09)
[2017-08-10 10:26] LABS: ABG Base Excess -0.4 MMOL/L (-2.5-2.5); ABG HCO3 24.1 MMOL/L (20-26); ABG Oxygen Saturation 97.8 % (95-100); ABG PCO2 64.9 MM HG (35-48); ABG PH 7.241 (7.35-7.45); ABG TCO2 26.4 MMOL/L (23-27)
[2017-08-10 10:27] LABS: Allen Test Positive; Pt O2 Delivery Device Ventilator
[2017-08-10] MEDS: MULTIVITAMIN LIQUID (CENTRUM) 60 ML BOTTLE PER TUBE SCH (12:19)
[2017-08-10] MEDS ORDERED: HEPARIN LOCK FLUSH 500 UNIT/5 ML SYRINGE IV PRN (15:43)
[2017-08-10] MEDS: CYCLOBENZAPRINE 10 MG TABLET PO SCH (21:09)
[2017-08-10] MEDS: QUEtiapine 100 MG TABLET PO SCH (21:09)
[2017-08-10] MEDS: ZALEPLON 5 MG CAPSULE PO SCH (21:09)
[2017-08-10] MEDS: PANTOPRAZOLE 40 MG VIAL IV SCH (21:29)
[2017-08-10] MEDS: fentaNYL INJ 1,250 MCG in SODIUM CHLORIDE 0.9% 225 ML IV SCH (23:09)
[2017-08-11] MEDS: PROPOFOL 1,000 MG/100 ML BOTTLE IV SCH ×7 (00:11→23:20)
[2017-08-11] MEDS: PHENYLEPHRINE INJ 160 MG in SODIUM CHLORIDE 0.9% 234 ML IV SCH ×2 (00:12→08:38)
[2017-08-11] MEDS: INSULIN REGULAR 100 UNIT/ML SUBCUT SCH ×5 (00:27→23:55)
[2017-08-11] MEDS: IPRATROPIUM 500 MCG/2.5 ML NEB RESP TX SCH ×4 (01:14→19:57)
[2017-08-11 03:30] LABS: ABG Base Excess 1.7 MMOL/L (-2.5-2.5); ABG HCO3 25.9 MMOL/L (20-26); ABG Oxygen Saturation 96.6 % (95-100); ABG PCO2 54.2 MM HG (35-48); ABG PH 7.324 (7.35-7.45); ABG PO2 89.8 MM HG (80-95); ABG TCO2 26.8 MMOL/L (23-27); Allen Test Positive; Pt O2 Delivery Device Ventilator
[2017-08-11 04:39] LABS: Hematocrit 22.8 VOL% (35.7-47.0); Hemoglobin 7.3 GM/DL (12.0-16.0); Immature Granulocytes % 2.8 %; Immature Granulocytes Absolute 0.57 #; Lymphocytes # 0.4 10*3/uL (1.4-4.0); Lymphocytes % 1.9 % (21.3-54.2); Mean Corpuscular Hemoglobin 30 PG (27-34); Mean Corpuscular Volume 93.4 FL (87-102); Mean Platelet Volume 10.4 FL (9.6-12.0); Monocytes # 0.9 10*3/uL (0.11-0.8); Monocytes % 4.6 % (1.7-12.7); NRBC # 0.04 10*3/uL; Neutrophils # 18.4 10*3/uL (1.4-7.4); Neutrophils % 90.7 % (38.7-73.9); Platelet Count 84 T/CUMM (130-400); Red Blood Count 2.44 MC/CUMM (3.8-5.5); Red Cell Distribution Width 14.7 % (9.3-17.3); White Blood Count 20.3 T/CUMM (4-12)
[2017-08-11 05:05] LABS: Calcium 7.9 MG/DL (8.5-10.1); Potassium 4.1 MMOL/L (3.5-5.1)
[2017-08-11 05:42] LABS: Band Neutrophils 2 % (0-10); Metamyelocytes 1 %; Myelocytes 1 %; Segmented Neutrophils 94 % (50-85); Total Cells Counted 100
[2017-08-11 05:43] LABS: Anisocytosis 1+; Hypochromasia 1+; Platelet Estimate Decreased
[2017-08-11] MEDS: ALBUTEROL 2 MG TABLET PO SCH ×3 (06:11→21:53)
[2017-08-11] MEDS: methylPREDNISolone SOD SUC 40 MG/1 ML VIAL IV SCH ×3 (06:11→21:57)
[2017-08-11] MEDS: LEVOTHYROXINE 150 MCG TABLET PO SCH (06:11)
[2017-08-11] MEDS: MONTELUKAST 10 MG TABLET PO SCH ×2 (08:35→21:53)
[2017-08-11] MEDS: ChlordiazePOXIDE/CLIDINIUM 5-2.5 MG CAPSULE PO SCH ×4 (08:35→21:53)
[2017-08-11] MEDS: PANTOPRAZOLE 40 MG VIAL IV SCH ×2 (08:36→21:53)
[2017-08-11] MEDS: amLODIPine 5 MG TABLET PO SCH (08:36)
[2017-08-11] MEDS: ACETAMINOPHEN 325 MG TABLET PO PRN (08:36)
[2017-08-11] MEDS: RIVAROXABAN 20 MG TABLET PO SCH (08:36)
[2017-08-11] MEDS: ATORVASTATIN 40 MG TABLET PO SCH (08:36)
[2017-08-11] MEDS: FLUoxetine 20 MG CAPSULE PO SCH (08:37)
[2017-08-11] MEDS: QUEtiapine 25 MG TABLET PO SCH ×2 (08:37→21:53)
[2017-08-11] MEDS: HYDROcodone/CHLORPHENIRAMINE ER 5 ML UDCUP PO SCH (08:37)
[2017-08-11] MEDS: CEFEPIME 1,000 MG in SYRINGE 1 EACH IV SCH ×2 (08:37→21:53)
[2017-08-11] MEDS ORDERED: SODIUM CHLORIDE 0.9% 1,000 ML IV PRN (08:39)
[2017-08-11] MEDS: MULTIVITAMIN LIQUID (CENTRUM) 60 ML BOTTLE PER TUBE SCH (08:43)
[2017-08-11] MEDS: DORNASE ALFA 2.5 MG/2.5 ML VIAL RESP TX SCH ×2 (08:48→20:45)
[2017-08-11 09:41] LABS: ABG Base Excess 0.5 MMOL/L (-2.5-2.5); ABG HCO3 24.6 MMOL/L (20-26); ABG Oxygen Saturation 75.6 % (95-100); ABG PCO2 50.5 MM HG (35-48); ABG PH 7.332 (7.35-7.45); ABG PO2 43.1 MM HG (80-95); ABG TCO2 25.2 MMOL/L (23-27); Allen Test Positive; Pt O2 Delivery Device Ventilator
[2017-08-11] MEDS: VECURONIUM 100 MG in SODIUM CHLORIDE 0.9% 100 ML IV SCH (17:52)
[2017-08-11] MEDS: fentaNYL INJ 1,250 MCG in SODIUM CHLORIDE 0.9% 225 ML IV SCH (17:54)
[2017-08-11] MEDS: QUEtiapine 100 MG TABLET PO SCH (21:53)
[2017-08-11] MEDS: CYCLOBENZAPRINE 10 MG TABLET PO SCH (21:53)
[2017-08-12] MEDS ORDERED: VANCOMYCIN INJ 1,250 MG in SODIUM CHLORIDE 0.45% 250 ML IV SCH
[2017-08-12] MEDS: IPRATROPIUM 500 MCG/2.5 ML NEB RESP TX SCH ×4 (01:58→19:28)
[2017-08-12 02:53] LABS: ABG Base Excess -0.8 MMOL/L (-2.5-2.5); ABG HCO3 23.7 MMOL/L (20-26); ABG Oxygen Saturation 97.4 % (95-100); ABG PCO2 57.1 MM HG (35-48); ABG TCO2 24.8 MMOL/L (23-27); Allen Test Positive; Pt O2 Delivery Device Ventilator
[2017-08-12] MEDS: PROPOFOL 1,000 MG/100 ML BOTTLE IV SCH ×6 (03:40→23:37)
[2017-08-12 04:41] LABS: Basophils % 0.1 % (0.0-0.8); Hematocrit 28.5 VOL% (35.7-47.0); Hemoglobin 9.5 GM/DL (12.0-16.0); Immature Granulocytes % 2.8 %; Immature Granulocytes Absolute 0.41 #; Lymphocytes # 0.4 10*3/uL (1.4-4.0); Lymphocytes % 2.6 % (21.3-54.2); Mean Corpuscular HGB Conc 33.3 GM/DL (32-36); Mean Corpuscular Hemoglobin 30 PG (27-34); Mean Corpuscular Volume 90.2 FL (87-102); Mean Platelet Volume 9.8 FL (9.6-12.0); Monocytes # 0.9 10*3/uL (0.11-0.8); Monocytes % 6.3 % (1.7-12.7); Neutrophils # 13.1 10*3/uL (1.4-7.4); Neutrophils % 88.2 % (38.7-73.9); Platelet Count 68 T/CUMM (130-400); Red Blood Count 3.16 MC/CUMM (3.8-5.5); Red Cell Distribution Width 15.2 % (9.3-17.3); White Blood Count 14.9 T/CUMM (4-12)
[2017-08-12 05:00] LABS: Osmolality,Calculated 302.8 MOS/KG (273-304); Potassium 4.5 MMOL/L (3.5-5.1)
[2017-08-12 05:03] LABS: Hypochromasia 1+; Lymphocytes 2 % (20-55); Platelet Estimate Decreased; Segmented Neutrophils 92 % (50-85); Total Cells Counted 100
[2017-08-12] MEDS: INSULIN REGULAR 100 UNIT/ML SUBCUT SCH ×3 (05:37→18:09)
[2017-08-12 05:46] LABS: Prealbumin 13.2 MG/DL (20-40)
[2017-08-12] MEDS: fentaNYL INJ 1,250 MCG in SODIUM CHLORIDE 0.9% 225 ML IV SCH ×2 (06:20→17:51)
[2017-08-12] MEDS: methylPREDNISolone SOD SUC 40 MG/1 ML VIAL IV SCH ×3 (06:21→21:44)
[2017-08-12] MEDS: LEVOTHYROXINE 150 MCG TABLET PO SCH (06:21)
[2017-08-12] MEDS: ALBUTEROL 2 MG TABLET PO SCH ×3 (06:21→21:40)
[2017-08-12] MEDS: DORNASE ALFA 2.5 MG/2.5 ML VIAL RESP TX SCH ×2 (08:16→19:33)
[2017-08-12] MEDS: MONTELUKAST 10 MG TABLET PO SCH ×2 (09:14→21:40)
[2017-08-12] MEDS: CEFEPIME 1,000 MG in SYRINGE 1 EACH IV SCH ×2 (09:14→21:40)
[2017-08-12] MEDS: PANTOPRAZOLE 40 MG VIAL IV SCH ×2 (09:14→21:41)
[2017-08-12] MEDS: MULTIVITAMIN LIQUID (CENTRUM) 60 ML BOTTLE PER TUBE SCH (09:15)
[2017-08-12] MEDS: FLUoxetine 20 MG CAPSULE PO SCH (09:15)
[2017-08-12] MEDS: QUEtiapine 25 MG TABLET PO SCH ×2 (09:15→21:40)
[2017-08-12] MEDS: ATORVASTATIN 40 MG TABLET PO SCH (09:15)
[2017-08-12] MEDS: VECURONIUM 100 MG in SODIUM CHLORIDE 0.9% 100 ML IV SCH (09:15)
[2017-08-12] MEDS: ChlordiazePOXIDE/CLIDINIUM 5-2.5 MG CAPSULE PO SCH ×4 (09:15→21:41)
[2017-08-12] MEDS: RIVAROXABAN 20 MG TABLET PO SCH (09:16)
[2017-08-12] MEDS: PHENYLEPHRINE INJ 160 MG in SODIUM CHLORIDE 0.9% 234 ML IV SCH (09:16)
[2017-08-12] MEDS: amLODIPine 5 MG TABLET PO SCH (09:16)
[2017-08-12] MEDS: CYCLOBENZAPRINE 10 MG TABLET PO SCH (21:40)
[2017-08-12] MEDS: QUEtiapine 100 MG TABLET PO SCH (21:41)
[2017-08-13] MEDS: INSULIN REGULAR 100 UNIT/ML SUBCUT SCH ×4 (00:01→18:28)
[2017-08-13] MEDS: IPRATROPIUM 500 MCG/2.5 ML NEB RESP TX SCH ×4 (00:30→19:19)
[2017-08-13] MEDS: VECURONIUM 100 MG in SODIUM CHLORIDE 0.9% 100 ML IV SCH ×2 (03:29→21:14)
[2017-08-13 03:35] LABS: ABG Base Excess 1.5 MMOL/L (-2.5-2.5); ABG Oxygen Saturation 96.7 % (95-100); ABG PH 7.254 (7.35-7.45); ABG PO2 103.1 MM HG (80-95); ABG TCO2 32.1 MMOL/L (23-27); Allen Test Positive; Pt O2 Delivery Device Ventilator
[2017-08-13 03:40] LABS: ABG PCO2 69.3 MM HG (35-48)
[2017-08-13] MEDS: PROPOFOL 1,000 MG/100 ML BOTTLE IV SCH ×5 (04:15→21:04)
[2017-08-13] MEDS: fentaNYL INJ 1,250 MCG in SODIUM CHLORIDE 0.9% 225 ML IV SCH ×2 (04:50→15:42)
[2017-08-13 04:52] LABS: Basophils % 0.1 % (0.0-0.8); Hematocrit 30.3 VOL% (35.7-47.0); Hemoglobin 9.9 GM/DL (12.0-16.0); Immature Granulocytes % 4.2 %; Immature Granulocytes Absolute 0.62 #; Lymphocytes # 0.3 10*3/uL (1.4-4.0); Lymphocytes % 2.3 % (21.3-54.2); Mean Corpuscular HGB Conc 32.7 GM/DL (32-36); Mean Corpuscular Hemoglobin 30 PG (27-34); Mean Corpuscular Volume 92.1 FL (87-102); Mean Platelet Volume 10.5 FL (9.6-12.0); Monocytes # 0.8 10*3/uL (0.11-0.8); Monocytes % 5.2 % (1.7-12.7); NRBC # 0.03 10*3/uL; Neutrophils # 13.1 10*3/uL (1.4-7.4); Neutrophils % 88.2 % (38.7-73.9); Platelet Count 77 T/CUMM (130-400); Red Blood Count 3.29 MC/CUMM (3.8-5.5); Red Cell Distribution Width 15.1 % (9.3-17.3); White Blood Count 14.9 T/CUMM (4-12)
[2017-08-13 05:12] LABS: Band Neutrophils 1 % (0-10); Lymphocytes 6 % (20-55); Nucleated Red Blood Cells 1 (0-5); Promyelocytes 1 %; Segmented Neutrophils 87 % (50-85); Total Cells Counted 100
[2017-08-13 05:13] LABS: Hypochromasia 1+; Platelet Estimate Decreased
[2017-08-13 05:25] LABS: Calcium 8.2 MG/DL (8.5-10.1); Osmolality,Calculated 305.6 MOS/KG (273-304); Potassium 4.8 MMOL/L (3.5-5.1)
[2017-08-13] MEDS: ALBUTEROL 2 MG TABLET PO SCH ×3 (06:19→21:35)
[2017-08-13] MEDS: methylPREDNISolone SOD SUC 40 MG/1 ML VIAL IV SCH ×3 (06:24→21:39)
[2017-08-13] MEDS: LEVOTHYROXINE 100 MCG VIAL IV SCH (06:26)
[2017-08-13] MEDS: ChlordiazePOXIDE/CLIDINIUM 5-2.5 MG CAPSULE PO SCH ×4 (06:30→21:35)
[2017-08-13] MEDS ORDERED: SODIUM BICARBONATE 50 MEQ/50 ML SYRINGE IV ONE (08:00)
[2017-08-13] MEDS: MONTELUKAST 10 MG TABLET PO SCH ×2 (08:19→21:35)
[2017-08-13] MEDS: QUEtiapine 25 MG TABLET PO SCH ×2 (08:19→21:35)
[2017-08-13] MEDS: FLUoxetine 20 MG CAPSULE PO SCH (08:20)
[2017-08-13] MEDS: RIVAROXABAN 20 MG TABLET PO SCH (08:20)
[2017-08-13] MEDS: ATORVASTATIN 40 MG TABLET PO SCH ×2 (08:21→14:00)
[2017-08-13] MEDS: MULTIVITAMIN LIQUID (CENTRUM) 60 ML BOTTLE PER TUBE SCH (08:22)
[2017-08-13] MEDS: CEFEPIME 1,000 MG in SYRINGE 1 EACH IV SCH ×2 (08:30→21:34)
[2017-08-13] MEDS: PANTOPRAZOLE 40 MG VIAL IV SCH ×2 (08:31→21:35)
[2017-08-13] MEDS: DORNASE ALFA 2.5 MG/2.5 ML VIAL RESP TX SCH ×2 (08:37→19:20)
[2017-08-13] MEDS: PHENYLEPHRINE INJ 160 MG in SODIUM CHLORIDE 0.9% 234 ML IV SCH (09:27)
[2017-08-13 09:54] LABS: ABG Base Excess 1.4 MMOL/L (-2.5-2.5); ABG HCO3 25.5 MMOL/L (20-26); ABG Oxygen Saturation 92.7 % (95-100); ABG PCO2 60.9 MM HG (35-48); ABG PH 7.292 (7.35-7.45); ABG PO2 68.5 MM HG (80-95); ABG TCO2 26.6 MMOL/L (23-27); Allen Test Positive; Pt O2 Delivery Device Ventilator
[2017-08-13] MEDS: amLODIPine 5 MG TABLET PO SCH ×2 (10:11→14:00)
[2017-08-13] MEDS: hydrALAZINE 20 MG/1 ML VIAL IV PRN (11:29)
[2017-08-13] MEDS: CYCLOBENZAPRINE 10 MG TABLET PO SCH (21:35)
[2017-08-13] MEDS: QUEtiapine 100 MG TABLET PO SCH (21:35)
[2017-08-14] MEDS: INSULIN REGULAR 100 UNIT/ML SUBCUT SCH ×4 (00:10→17:31)
[2017-08-14] MEDS: fentaNYL INJ 1,250 MCG in SODIUM CHLORIDE 0.9% 225 ML IV SCH ×5 (00:30→20:46)
[2017-08-14] MEDS: IPRATROPIUM 500 MCG/2.5 ML NEB RESP TX SCH ×5 (00:37→23:58)
[2017-08-14] MEDS: PROPOFOL 1,000 MG/100 ML BOTTLE IV SCH ×7 (01:35→23:13)
[2017-08-14 04:28] LABS: ABG Oxygen Saturation 97.9 % (95-100); ABG PH 7.362 (7.35-7.45); ABG TCO2 27.6 MMOL/L (23-27)
[2017-08-14 04:35] LABS: Basophils % 0.1 % (0.0-0.8); Eosinophils % 0.1 % (0.00-10.9); Immature Granulocytes % 3.4 %; Immature Granulocytes Absolute 0.69 #; Lymphocytes # 0.4 10*3/uL (1.4-4.0); Lymphocytes % 2.1 % (21.3-54.2); Mean Corpuscular HGB Conc 32.4 GM/DL (32-36); Mean Corpuscular Hemoglobin 30 PG (27-34); Mean Corpuscular Volume 93.2 FL (87-102); Mean Platelet Volume 10.6 FL (9.6-12.0); Monocytes % 4.7 % (1.7-12.7); NRBC # 0.03 10*3/uL; Neutrophils # 18.3 10*3/uL (1.4-7.4); Neutrophils % 89.6 % (38.7-73.9); Platelet Count 113 T/CUMM (130-400); Red Blood Count 3.65 MC/CUMM (3.8-5.5); Red Cell Distribution Width 14.7 % (9.3-17.3); White Blood Count 20.4 T/CUMM (4-12)
[2017-08-14 04:55] LABS: Calcium 7.7 MG/DL (8.5-10.1); Osmolality,Calculated 312.1 MOS/KG (273-304); Potassium 4.6 MMOL/L (3.5-5.1)
[2017-08-14 04:59] LABS: Band Neutrophils 3 % (0-10); Lymphocytes 5 % (20-55); Macrocytosis 1+; Segmented Neutrophils 85 % (50-85); Total Cells Counted 100
[2017-08-14 05:00] LABS: Platelet Estimate Decreased
[2017-08-14] MEDS: ALBUTEROL 2 MG TABLET PO SCH ×3 (06:08→23:13)
[2017-08-14] MEDS: LEVOTHYROXINE 100 MCG VIAL IV SCH (06:09)
[2017-08-14] MEDS: methylPREDNISolone SOD SUC 40 MG/1 ML VIAL IV SCH ×3 (06:12→23:13)
[2017-08-14] MEDS: ChlordiazePOXIDE/CLIDINIUM 5-2.5 MG CAPSULE PO SCH ×4 (06:32→20:33)
[2017-08-14 07:57] LABS: ABG Base Excess 3.1 MMOL/L (-2.5-2.5); ABG HCO3 27.1 MMOL/L (20-26); ABG Oxygen Saturation 96.1 % (95-100); ABG PCO2 55.7 MM HG (35-48); ABG PH 7.339 (7.35-7.45); ABG PO2 82.2 MM HG (80-95); ABG TCO2 27.3 MMOL/L (23-27); Allen Test Positive; Pt O2 Delivery Device Ventilator
[2017-08-14] MEDS: DORNASE ALFA 2.5 MG/2.5 ML VIAL RESP TX SCH ×2 (08:04→19:52)
[2017-08-14] MEDS: FLUoxetine 20 MG CAPSULE PO SCH (08:09)
[2017-08-14] MEDS: CEFEPIME 1,000 MG in SYRINGE 1 EACH IV SCH ×2 (08:09→20:34)
[2017-08-14] MEDS: PANTOPRAZOLE 40 MG VIAL IV SCH ×2 (08:09→20:34)
[2017-08-14] MEDS: MONTELUKAST 10 MG TABLET PO SCH ×2 (08:09→20:33)
[2017-08-14] MEDS: ATORVASTATIN 40 MG TABLET PO SCH (08:10)
[2017-08-14] MEDS: MULTIVITAMIN LIQUID (CENTRUM) 60 ML BOTTLE PER TUBE SCH (08:10)
[2017-08-14] MEDS: amLODIPine 5 MG TABLET PO SCH (08:10)
[2017-08-14] MEDS: QUEtiapine 25 MG TABLET PO SCH ×2 (08:10→20:33)
[2017-08-14] MEDS: PHENYLEPHRINE INJ 160 MG in SODIUM CHLORIDE 0.9% 234 ML IV SCH (08:26)
[2017-08-14] MEDS: DESITIN 4OZ/NYSTATIN 15 GRAM MIXTURE PASTE TOP SCH ×2 (10:30→23:13)
[2017-08-14] MEDS: ACETAMINOPHEN 325 MG TABLET PO PRN (11:00)
[2017-08-14] MEDS: VECURONIUM 100 MG in SODIUM CHLORIDE 0.9% 100 ML IV SCH (17:03)
[2017-08-14] MEDS: CYCLOBENZAPRINE 10 MG TABLET PO SCH (20:34)
[2017-08-14] MEDS: QUEtiapine 100 MG TABLET PO SCH (22:18)
[2017-08-15] MEDS: INSULIN REGULAR 100 UNIT/ML SUBCUT SCH ×4 (00:28→18:15)
[2017-08-15] MEDS: hydrALAZINE 20 MG/1 ML VIAL IV PRN ×3 (02:05→16:26)
[2017-08-15] MEDS: ACETAMINOPHEN 325 MG TABLET PO PRN (02:58)
[2017-08-15 03:41] LABS: Basophils % 0.2 % (0.0-0.8); Eosinophils # 0.2 10*3/uL (0.0-0.87); Eosinophils % 0.7 % (0.00-10.9); Hematocrit 38.5 VOL% (35.7-47.0); Hemoglobin 12.1 GM/DL (12.0-16.0); Lymphocytes # 0.6 10*3/uL (1.4-4.0); Lymphocytes % 2.6 % (21.3-54.2); Mean Corpuscular HGB Conc 31.4 GM/DL (32-36); Mean Corpuscular Hemoglobin 30 PG (27-34); Mean Corpuscular Volume 95.3 FL (87-102); Mean Platelet Volume 10.5 FL (9.6-12.0); NRBC # 0.03 10*3/uL; Neutrophils # 22.2 10*3/uL (1.4-7.4); Neutrophils % 88.5 % (38.7-73.9); Platelet Count 154 T/CUMM (130-400); Red Blood Count 4.04 MC/CUMM (3.8-5.5); Red Cell Distribution Width 14.7 % (9.3-17.3); White Blood Count 25.1 T/CUMM (4-12)
[2017-08-15 03:53] LABS: Calcium 8.3 MG/DL (8.5-10.1); Osmolality,Calculated 312.3 MOS/KG (273-304); Potassium 4.7 MMOL/L (3.5-5.1)
[2017-08-15 04:08] LABS: ABG Base Excess 2.9 MMOL/L (-2.5-2.5); ABG HCO3 30.8 MMOL/L (20-26); ABG Oxygen Saturation 94.9 % (95-100); ABG PCO2 62.9 MM HG (35-48); ABG PH 7.308 (7.35-7.45); ABG PO2 83.8 MM HG (80-95); ABG TCO2 32.7 MMOL/L (23-27); Pt O2 Delivery Device Ventilator
[2017-08-15 04:32] LABS: Lymphocytes 6 % (20-55); Segmented Neutrophils 91 % (50-85); Total Cells Counted 100
[2017-08-15 04:33] LABS: Platelet Estimate Normal
[2017-08-15] MEDS: ALBUTEROL 2 MG TABLET PO SCH ×3 (06:39→21:41)
[2017-08-15] MEDS: LEVOTHYROXINE 100 MCG VIAL IV SCH (06:39)
[2017-08-15] MEDS: methylPREDNISolone SOD SUC 40 MG/1 ML VIAL IV SCH ×3 (06:39→21:41)
[2017-08-15] MEDS: IPRATROPIUM 500 MCG/2.5 ML NEB RESP TX SCH ×3 (07:09→21:09)
[2017-08-15] MEDS: VECURONIUM 100 MG in SODIUM CHLORIDE 0.9% 100 ML IV SCH ×3 (07:41→19:50)
[2017-08-15] MEDS: PHENYLEPHRINE INJ 160 MG in SODIUM CHLORIDE 0.9% 234 ML IV SCH (07:43)
[2017-08-15] MEDS: CEFEPIME 1,000 MG in SYRINGE 1 EACH IV SCH (08:10)
[2017-08-15] MEDS: PANTOPRAZOLE 40 MG VIAL IV SCH ×2 (08:10→21:45)
[2017-08-15] MEDS: FLUoxetine 20 MG CAPSULE PO SCH (08:11)
[2017-08-15] MEDS: ChlordiazePOXIDE/CLIDINIUM 5-2.5 MG CAPSULE PO SCH ×4 (08:11→21:41)
[2017-08-15] MEDS: amLODIPine 5 MG TABLET PO SCH (08:11)
[2017-08-15] MEDS: ATORVASTATIN 40 MG TABLET PO SCH (08:11)
[2017-08-15] MEDS: MONTELUKAST 10 MG TABLET PO SCH ×2 (08:11→21:42)
[2017-08-15] MEDS: QUEtiapine 25 MG TABLET PO SCH (08:11)
[2017-08-15] MEDS: MULTIVITAMIN LIQUID (CENTRUM) 60 ML BOTTLE PER TUBE SCH (08:11)
[2017-08-15] MEDS: RIVAROXABAN 20 MG TABLET PO SCH (08:11)
[2017-08-15] MEDS: DESITIN 4OZ/NYSTATIN 15 GRAM MIXTURE PASTE TOP SCH ×2 (08:12→21:42)
[2017-08-15] MEDS: DORNASE ALFA 2.5 MG/2.5 ML VIAL RESP TX SCH (09:33)
[2017-08-15] MEDS: PROPOFOL 1,000 MG/100 ML BOTTLE IV SCH ×3 (10:03→21:42)
[2017-08-15] MEDS: fentaNYL INJ 1,250 MCG in SODIUM CHLORIDE 0.9% 225 ML IV SCH (10:55)
[2017-08-15] MEDS: cefTAZidime 1,000 MG in SYRINGE 1 EACH IV SCH (16:25)
[2017-08-15] MEDS: TOBRAMYCIN 80 MG/2 ML VIAL RESP TX SCH (21:08)
[2017-08-15] MEDS: CYCLOBENZAPRINE 10 MG TABLET PO SCH (21:42)
[2017-08-15] MEDS: QUEtiapine 100 MG TABLET PO SCH (21:42)
[2017-08-16] MEDS: INSULIN REGULAR 100 UNIT/ML SUBCUT SCH ×4 (00:07→17:39)
[2017-08-16] MEDS: cefTAZidime 1,000 MG in SYRINGE 1 EACH IV SCH ×3 (01:09→17:19)
[2017-08-16] MEDS: IPRATROPIUM 500 MCG/2.5 ML NEB RESP TX SCH ×4 (01:57→20:19)
[2017-08-16 04:59] LABS: Basophils % 0.2 % (0.0-0.8); Eosinophils % 0.1 % (0.00-10.9); Hematocrit 37.4 VOL% (35.7-47.0); Hemoglobin 12.3 GM/DL (12.0-16.0); Lymphocytes # 0.3 10*3/uL (1.4-4.0); Lymphocytes % 1.5 % (21.3-54.2); Mean Corpuscular HGB Conc 32.9 GM/DL (32-36); Mean Corpuscular Hemoglobin 30 PG (27-34); Mean Corpuscular Volume 91.4 FL (87-102); Monocytes # 0.8 10*3/uL (0.11-0.8); Monocytes % 3.8 % (1.7-12.7); Neutrophils # 18.4 10*3/uL (1.4-7.4); Neutrophils % 91.4 % (38.7-73.9); Platelet Count 154 T/CUMM (130-400); Red Blood Count 4.09 MC/CUMM (3.8-5.5); Red Cell Distribution Width 14.9 % (9.3-17.3); White Blood Count 20.1 T/CUMM (4-12)
[2017-08-16] MEDS: fentaNYL INJ 1,250 MCG in SODIUM CHLORIDE 0.9% 225 ML IV SCH (05:15)
[2017-08-16 05:32] LABS: Calcium 8.7 MG/DL (8.5-10.1); Osmolality,Calculated 316.1 MOS/KG (273-304); Potassium 4.5 MMOL/L (3.5-5.1)
[2017-08-16 06:01] LABS: Allen Test Positive; Pt O2 Delivery Device Ventilator
[2017-08-16 06:03] LABS: ABG HCO3 30.3 MMOL/L (20-26); ABG Oxygen Saturation 96.2 % (95-100); ABG PCO2 42.8 MM HG (35-48); ABG PH 7.468 (7.35-7.45); ABG PO2 82.9 MM HG (80-95); ABG TCO2 31.6 MMOL/L (23-27)
[2017-08-16 06:40] LABS: Band Neutrophils 6 % (0-10); Eosinophils 1 % (0-10); Lymphocytes 3 % (20-55); Segmented Neutrophils 88 % (50-85); Total Cells Counted 100
[2017-08-16] MEDS: PROPOFOL 1,000 MG/100 ML BOTTLE IV SCH ×3 (06:40→19:38)
[2017-08-16] MEDS: LEVOTHYROXINE 100 MCG VIAL IV SCH (06:41)
[2017-08-16] MEDS: ALBUTEROL 2 MG TABLET PO SCH ×3 (06:41→21:35)
[2017-08-16] MEDS: methylPREDNISolone SOD SUC 40 MG/1 ML VIAL IV SCH ×3 (06:41→21:35)
[2017-08-16] MEDS: TOBRAMYCIN 80 MG/2 ML VIAL RESP TX SCH ×2 (08:33→20:19)
[2017-08-16] MEDS: ChlordiazePOXIDE/CLIDINIUM 5-2.5 MG CAPSULE PO SCH ×4 (09:21→21:35)
[2017-08-16] MEDS: ATORVASTATIN 40 MG TABLET PO SCH (09:23)
[2017-08-16] MEDS: FLUoxetine 20 MG CAPSULE PO SCH (09:23)
[2017-08-16] MEDS: amLODIPine 5 MG TABLET PO SCH (09:24)
[2017-08-16] MEDS: MULTIVITAMIN LIQUID (CENTRUM) 60 ML BOTTLE PER TUBE SCH (09:24)
[2017-08-16] MEDS: DESITIN 4OZ/NYSTATIN 15 GRAM MIXTURE PASTE TOP SCH ×2 (09:25→21:36)
[2017-08-16] MEDS: MONTELUKAST 10 MG TABLET PO SCH ×2 (09:38→21:35)
[2017-08-16 09:41] LABS: ABG Base Excess 5.5 MMOL/L (-2.5-2.5); ABG HCO3 29.3 MMOL/L (20-26); ABG Oxygen Saturation 96.1 % (95-100); ABG PCO2 63.1 MM HG (35-48); ABG PH 7.335 (7.35-7.45); ABG PO2 87.7 MM HG (80-95); ABG TCO2 29.6 MMOL/L (23-27); Allen Test Positive; Pt O2 Delivery Device Ventilator
[2017-08-16] MEDS: PANTOPRAZOLE 40 MG VIAL IV SCH ×2 (09:57→22:06)
[2017-08-16] MEDS: PHENYLEPHRINE INJ 160 MG in SODIUM CHLORIDE 0.9% 234 ML IV SCH (12:15)
[2017-08-16] MEDS: VECURONIUM 100 MG in SODIUM CHLORIDE 0.9% 100 ML IV SCH (13:31)
[2017-08-16] MEDS: GENTAMICIN 0.3% OPH SOLN 5 ML BOTTLE BOTH EYES SCH ×3 (15:09→21:36)
[2017-08-16] MEDS: QUEtiapine 100 MG TABLET PO SCH (21:35)
[2017-08-16] MEDS: CYCLOBENZAPRINE 10 MG TABLET PO SCH (21:35)
[2017-08-17] MEDS: INSULIN REGULAR 100 UNIT/ML SUBCUT SCH ×4 (00:56→18:23)
[2017-08-17] MEDS: cefTAZidime 1,000 MG in SYRINGE 1 EACH IV SCH ×3 (01:00→18:06)
[2017-08-17] MEDS: IPRATROPIUM 500 MCG/2.5 ML NEB RESP TX SCH ×4 (01:12→19:10)
[2017-08-17] MEDS: GENTAMICIN 0.3% OPH SOLN 5 ML BOTTLE BOTH EYES SCH ×6 (02:39→21:41)
[2017-08-17] MEDS: PROPOFOL 1,000 MG/100 ML BOTTLE IV SCH (02:40)
[2017-08-17 04:03] LABS: ABG Base Excess 6.8 MMOL/L (-2.5-2.5); ABG HCO3 32.7 MMOL/L (20-26); ABG Oxygen Saturation 92.8 % (95-100); ABG PCO2 52.6 MM HG (35-48); ABG PH 7.412 (7.35-7.45); ABG PO2 66.7 MM HG (80-95); ABG TCO2 34.4 MMOL/L (23-27)
[2017-08-17 04:21] LABS: Basophils % 0.1 % (0.0-0.8); Eosinophils % 0.1 % (0.00-10.9); Hematocrit 36.3 VOL% (35.7-47.0); Immature Granulocytes Absolute 0.43 #; Lymphocytes # 0.3 10*3/uL (1.4-4.0); Lymphocytes % 1.5 % (21.3-54.2); Mean Corpuscular HGB Conc 33.1 GM/DL (32-36); Mean Corpuscular Hemoglobin 31 PG (27-34); Mean Corpuscular Volume 92.4 FL (87-102); Mean Platelet Volume 10.8 FL (9.6-12.0); Monocytes # 0.8 10*3/uL (0.11-0.8); Monocytes % 3.8 % (1.7-12.7); Neutrophils # 19.9 10*3/uL (1.4-7.4); Neutrophils % 92.5 % (38.7-73.9); Platelet Count 171 T/CUMM (130-400); Red Blood Count 3.93 MC/CUMM (3.8-5.5); Red Cell Distribution Width 14.9 % (9.3-17.3); White Blood Count 21.5 T/CUMM (4-12)
[2017-08-17 04:58] LABS: Calcium 8.5 MG/DL (8.5-10.1); Osmolality,Calculated 305.7 MOS/KG (273-304)
[2017-08-17 06:05] LABS: Segmented Neutrophils 94 % (50-85); Total Cells Counted 100
[2017-08-17 06:06] LABS: Giant Platelets Few; Hypochromasia 1+; Platelet Estimate Normal
[2017-08-17] MEDS: methylPREDNISolone SOD SUC 40 MG/1 ML VIAL IV SCH ×3 (06:47→21:40)
[2017-08-17] MEDS: LEVOTHYROXINE 100 MCG VIAL IV SCH (06:47)
[2017-08-17] MEDS: ALBUTEROL 2 MG TABLET PO SCH ×3 (06:47→21:40)
[2017-08-17] MEDS: TOBRAMYCIN 80 MG/2 ML VIAL RESP TX SCH ×2 (08:04→19:10)
[2017-08-17] MEDS: PANTOPRAZOLE 40 MG VIAL IV SCH ×2 (08:57→21:44)
[2017-08-17] MEDS: amLODIPine 5 MG TABLET PO SCH (09:07)
[2017-08-17] MEDS: MULTIVITAMIN LIQUID (CENTRUM) 60 ML BOTTLE PER TUBE SCH (09:07)
[2017-08-17] MEDS: MONTELUKAST 10 MG TABLET PO SCH ×2 (09:08→21:40)
[2017-08-17] MEDS: ATORVASTATIN 40 MG TABLET PO SCH (09:08)
[2017-08-17] MEDS: FLUoxetine 20 MG CAPSULE PO SCH (09:09)
[2017-08-17] MEDS: ChlordiazePOXIDE/CLIDINIUM 5-2.5 MG CAPSULE PO SCH ×4 (09:09→21:41)
[2017-08-17] MEDS: PHENYLEPHRINE INJ 160 MG in SODIUM CHLORIDE 0.9% 234 ML IV SCH (12:10)
[2017-08-17] MEDS: DESITIN 4OZ/NYSTATIN 15 GRAM MIXTURE PASTE TOP SCH ×2 (12:12→21:41)
[2017-08-17] MEDS: hydrALAZINE 20 MG/1 ML VIAL IV PRN (12:16)
[2017-08-17] MEDS: QUEtiapine 100 MG TABLET PO SCH (21:40)
[2017-08-17] MEDS: CYCLOBENZAPRINE 10 MG TABLET PO SCH (21:40)
[2017-08-18] MEDS: IPRATROPIUM 500 MCG/2.5 ML NEB RESP TX SCH ×5 (01:10→19:07)
[2017-08-18] MEDS: cefTAZidime 1,000 MG in SYRINGE 1 EACH IV SCH ×3 (01:10→16:15)
[2017-08-18] MEDS: INSULIN REGULAR 100 UNIT/ML SUBCUT SCH ×4 (01:11→18:29)
[2017-08-18] MEDS: PROPOFOL 1,000 MG/100 ML BOTTLE IV SCH ×2 (01:21→13:51)
[2017-08-18] MEDS: GENTAMICIN 0.3% OPH SOLN 5 ML BOTTLE BOTH EYES SCH ×6 (03:36→22:26)
[2017-08-18 03:42] LABS: Allen Test Positive; Pt O2 Delivery Device Ventilator
[2017-08-18 03:43] LABS: ABG Base Excess 7.7 MMOL/L (-2.5-2.5); ABG HCO3 32.4 MMOL/L (20-26); ABG Oxygen Saturation 97.8 % (95-100); ABG PCO2 45.9 MM HG (35-48); ABG PH 7.467 (7.35-7.45); ABG PO2 105.8 MM HG (80-95); ABG TCO2 33.8 MMOL/L (23-27)
[2017-08-18 06:10] LABS: Basophils % 0.1 % (0.0-0.8); Eosinophils % 0.1 % (0.00-10.9); Hematocrit 36.4 VOL% (35.7-47.0); Hemoglobin 11.6 GM/DL (12.0-16.0); Immature Granulocytes % 1.6 %; Lymphocytes # 0.4 10*3/uL (1.4-4.0); Lymphocytes % 2.1 % (21.3-54.2); Mean Corpuscular HGB Conc 31.9 GM/DL (32-36); Mean Corpuscular Hemoglobin 30 PG (27-34); Mean Corpuscular Volume 93.8 FL (87-102); Mean Platelet Volume 11.4 FL (9.6-12.0); Monocytes % 5.2 % (1.7-12.7); Neutrophils # 17.2 10*3/uL (1.4-7.4); Neutrophils % 90.9 % (38.7-73.9); Platelet Count 173 T/CUMM (130-400); Red Blood Count 3.88 MC/CUMM (3.8-5.5); Red Cell Distribution Width 15.2 % (9.3-17.3); White Blood Count 18.9 T/CUMM (4-12)
[2017-08-18] MEDS: ALBUTEROL 2 MG TABLET PO SCH ×3 (06:37→22:26)
[2017-08-18] MEDS: LEVOTHYROXINE 100 MCG VIAL IV SCH (06:37)
[2017-08-18] MEDS: methylPREDNISolone SOD SUC 40 MG/1 ML VIAL IV SCH ×3 (06:37→22:27)
[2017-08-18] MEDS: TOBRAMYCIN 80 MG/2 ML VIAL RESP TX SCH ×2 (07:17→19:07)
[2017-08-18 08:10] LABS: Band Neutrophils 1 % (0-10); Giant Platelets Few; Hypochromasia 1+; Platelet Estimate Normal; Segmented Neutrophils 92 % (50-85); Total Cells Counted 100
[2017-08-18] MEDS: PANTOPRAZOLE 40 MG VIAL IV SCH ×2 (09:11→22:27)
[2017-08-18] MEDS: MULTIVITAMIN LIQUID (CENTRUM) 60 ML BOTTLE PER TUBE SCH (09:16)
[2017-08-18] MEDS: MONTELUKAST 10 MG TABLET PO SCH ×2 (09:17→22:26)
[2017-08-18] MEDS: amLODIPine 5 MG TABLET PO SCH (09:18)
[2017-08-18] MEDS: ChlordiazePOXIDE/CLIDINIUM 5-2.5 MG CAPSULE PO SCH ×4 (09:18→22:26)
[2017-08-18] MEDS: ATORVASTATIN 40 MG TABLET PO SCH (09:18)
[2017-08-18] MEDS: FLUoxetine 20 MG CAPSULE PO SCH (09:19)
[2017-08-18] MEDS: DESITIN 4OZ/NYSTATIN 15 GRAM MIXTURE PASTE TOP SCH ×2 (11:36→22:26)
[2017-08-18] MEDS: VECURONIUM 100 MG in SODIUM CHLORIDE 0.9% 100 ML IV SCH ×2 (21:29→21:30)
[2017-08-18] MEDS: PHENYLEPHRINE INJ 160 MG in SODIUM CHLORIDE 0.9% 234 ML IV SCH (21:29)
[2017-08-18] MEDS: CYCLOBENZAPRINE 10 MG TABLET PO SCH (22:26)
[2017-08-18] MEDS: QUEtiapine 100 MG TABLET PO SCH (22:26)
[2017-08-19] MEDS: cefTAZidime 1,000 MG in SYRINGE 1 EACH IV SCH ×4 (00:11→23:49)
[2017-08-19] MEDS: PROPOFOL 1,000 MG/100 ML BOTTLE IV SCH ×2 (00:12→07:18)
[2017-08-19] MEDS: fentaNYL INJ 1,250 MCG in SODIUM CHLORIDE 0.9% 225 ML IV SCH ×2 (00:20→23:44)
[2017-08-19] MEDS: IPRATROPIUM 500 MCG/2.5 ML NEB RESP TX SCH ×4 (00:34→20:12)
[2017-08-19] MEDS: INSULIN REGULAR 100 UNIT/ML SUBCUT SCH ×5 (00:53→23:44)
[2017-08-19] MEDS: GENTAMICIN 0.3% OPH SOLN 5 ML BOTTLE BOTH EYES SCH ×6 (03:43→21:36)
[2017-08-19 04:04] LABS: ABG Base Excess 8.1 MMOL/L (-2.5-2.5); ABG HCO3 34.4 MMOL/L (20-26); ABG Oxygen Saturation 97.6 % (95-100); ABG PCO2 56.2 MM HG (35-48); ABG PH 7.405 (7.35-7.45); ABG PO2 100.7 MM HG (80-95); ABG TCO2 36.2 MMOL/L (23-27); Allen Test Positive; Pt O2 Delivery Device Ventilator
[2017-08-19 04:53] LABS: Basophils % 0.2 % (0.0-0.8); Hematocrit 36.1 VOL% (35.7-47.0); Hemoglobin 11.2 GM/DL (12.0-16.0); Immature Granulocytes Absolute 0.42 #; Lymphocytes # 0.5 10*3/uL (1.4-4.0); Lymphocytes % 2.4 % (21.3-54.2); Mean Corpuscular Hemoglobin 30 PG (27-34); Mean Corpuscular Volume 96.5 FL (87-102); Mean Platelet Volume 10.8 FL (9.6-12.0); Monocytes % 4.8 % (1.7-12.7); Neutrophils # 18.9 10*3/uL (1.4-7.4); Neutrophils % 90.6 % (38.7-73.9); Platelet Count 180 T/CUMM (130-400); Red Blood Count 3.74 MC/CUMM (3.8-5.5); Red Cell Distribution Width 15.4 % (9.3-17.3); White Blood Count 20.8 T/CUMM (4-12)
[2017-08-19 05:18] LABS: Albumin 2.4 G/DL (3.4-5.0); Bilirubin,Total 1.5 MG/DL (0.2-1.0); Calcium 8.1 MG/DL (8.5-10.1); Osmolality,Calculated 302.7 MOS/KG (273-304); Potassium 5.5 MMOL/L (3.5-5.1); Total Protein 5.7 G/DL (6.4-8.3)
[2017-08-19 05:28] LABS: Band Neutrophils 1 % (0-10); Hypochromasia 1+; Lymphocytes 4 % (20-55); Segmented Neutrophils 90 % (50-85); Total Cells Counted 100
[2017-08-19 05:29] LABS: Microcytosis Slight; Platelet Estimate Adequate
[2017-08-19 05:35] LABS: Prealbumin 32.8 MG/DL (20-40)
[2017-08-19] MEDS: ALBUTEROL 2 MG TABLET PO SCH ×3 (05:56→21:34)
[2017-08-19] MEDS: LEVOTHYROXINE 100 MCG VIAL IV SCH (05:56)
[2017-08-19] MEDS: methylPREDNISolone SOD SUC 40 MG/1 ML VIAL IV SCH ×3 (07:06→21:36)
[2017-08-19] MEDS ORDERED: VECURONIUM 10 MG VIAL IV ONE ×2 (07:33→07:35)
[2017-08-19] MEDS: TOBRAMYCIN 80 MG/2 ML VIAL RESP TX SCH ×2 (09:15→20:12)
[2017-08-19] MEDS: PHENYLEPHRINE INJ 160 MG in SODIUM CHLORIDE 0.9% 234 ML IV SCH (09:32)
[2017-08-19] MEDS: PANTOPRAZOLE 40 MG VIAL IV SCH ×2 (09:36→21:34)
[2017-08-19] MEDS: amLODIPine 5 MG TABLET PO SCH (09:36)
[2017-08-19] MEDS: ACETAMINOPHEN 325 MG TABLET PO PRN ×2 (09:36→14:09)
[2017-08-19] MEDS: ATORVASTATIN 40 MG TABLET PO SCH (09:36)
[2017-08-19] MEDS: FLUoxetine 20 MG CAPSULE PO SCH (09:36)
[2017-08-19] MEDS: ChlordiazePOXIDE/CLIDINIUM 5-2.5 MG CAPSULE PO SCH ×4 (09:36→21:20)
[2017-08-19] MEDS: MONTELUKAST 10 MG TABLET PO SCH ×2 (09:37→21:34)
[2017-08-19] MEDS: MULTIVITAMIN LIQUID (CENTRUM) 60 ML BOTTLE PER TUBE SCH (09:37)
[2017-08-19] MEDS: DESITIN 4OZ/NYSTATIN 15 GRAM MIXTURE PASTE TOP SCH ×2 (09:38→21:36)
[2017-08-19] MEDS: VECURONIUM 100 MG in SODIUM CHLORIDE 0.9% 100 ML IV SCH (15:52)
[2017-08-19] MEDS: CYCLOBENZAPRINE 10 MG TABLET PO SCH (21:20)
[2017-08-19] MEDS: QUEtiapine 100 MG TABLET PO SCH (21:20)
[2017-08-20] MEDS: IPRATROPIUM 500 MCG/2.5 ML NEB RESP TX SCH ×4 (00:38→19:37)
[2017-08-20] MEDS: GENTAMICIN 0.3% OPH SOLN 5 ML BOTTLE BOTH EYES SCH ×6 (02:37→21:46)
[2017-08-20 03:10] LABS: ABG Base Excess 8.5 MMOL/L (-2.5-2.5); ABG HCO3 32.2 MMOL/L (20-26); ABG Oxygen Saturation 95.9 % (95-100); ABG PCO2 48.6 MM HG (35-48); ABG PH 7.451 (7.35-7.45); ABG PO2 77.2 MM HG (80-95); ABG TCO2 29.8 MMOL/L (23-27); Allen Test Positive; Pt O2 Delivery Device Ventilator
[2017-08-20 06:01] LABS: Basophils % 0.1 % (0.0-0.8); Eosinophils % 0.1 % (0.00-10.9); Hematocrit 37.5 VOL% (35.7-47.0); Hemoglobin 12.3 GM/DL (12.0-16.0); Immature Granulocytes % 1.2 %; Immature Granulocytes Absolute 0.25 #; Lymphocytes # 0.6 10*3/uL (1.4-4.0); Mean Corpuscular HGB Conc 32.8 GM/DL (32-36); Mean Corpuscular Hemoglobin 30 PG (27-34); Mean Platelet Volume 10.7 FL (9.6-12.0); Monocytes # 1.3 10*3/uL (0.11-0.8); Neutrophils % 89.6 % (38.7-73.9); Platelet Count 172 T/CUMM (130-400); Red Blood Count 4.12 MC/CUMM (3.8-5.5); Red Cell Distribution Width 14.8 % (9.3-17.3); White Blood Count 21.2 T/CUMM (4-12)
[2017-08-20 06:21] LABS: Hypochromasia 1+; Lymphocytes 1 % (20-55); Microcytosis Slight; Platelet Estimate Adequate; Segmented Neutrophils 95 % (50-85); Total Cells Counted 100
[2017-08-20] MEDS: INSULIN REGULAR 100 UNIT/ML SUBCUT SCH ×4 (06:21→23:58)
[2017-08-20] MEDS: ALBUTEROL 2 MG TABLET PO SCH ×4 (06:21→21:40)
[2017-08-20] MEDS: LEVOTHYROXINE 100 MCG VIAL IV SCH (06:27)
[2017-08-20] MEDS: methylPREDNISolone SOD SUC 40 MG/1 ML VIAL IV SCH ×3 (06:29→21:44)
[2017-08-20 06:35] LABS: Calcium 8.6 MG/DL (8.5-10.1); Osmolality,Calculated 298.8 MOS/KG (273-304); Potassium 5.3 MMOL/L (3.5-5.1)
[2017-08-20] MEDS: TOBRAMYCIN 80 MG/2 ML VIAL RESP TX SCH ×2 (07:14→19:37)
[2017-08-20] MEDS: ChlordiazePOXIDE/CLIDINIUM 5-2.5 MG CAPSULE PO SCH (08:23)
[2017-08-20] MEDS: PHENYLEPHRINE INJ 160 MG in SODIUM CHLORIDE 0.9% 234 ML IV SCH (08:23)
[2017-08-20] MEDS: cefTAZidime 1,000 MG in SYRINGE 1 EACH IV SCH ×2 (08:24→16:21)
[2017-08-20] MEDS: amLODIPine 5 MG TABLET PO SCH (08:24)
[2017-08-20] MEDS: FLUoxetine 20 MG CAPSULE PO SCH (08:24)
[2017-08-20] MEDS: ATORVASTATIN 40 MG TABLET PO SCH (08:24)
[2017-08-20] MEDS: MULTIVITAMIN LIQUID (CENTRUM) 60 ML BOTTLE PER TUBE SCH (08:24)
[2017-08-20] MEDS: MONTELUKAST 10 MG TABLET PO SCH ×2 (08:24→21:41)
[2017-08-20] MEDS: PROPOFOL 1,000 MG/100 ML BOTTLE IV SCH (08:25)
[2017-08-20] MEDS: DESITIN 4OZ/NYSTATIN 15 GRAM MIXTURE PASTE TOP SCH ×2 (08:25→21:46)
[2017-08-20] MEDS: PANTOPRAZOLE 40 MG VIAL IV SCH ×2 (08:25→21:41)
[2017-08-20 09:45] LABS: PT Patient Result 10.8 SECS
[2017-08-20 12:29] LABS: Basophils % 0.1 % (0.0-0.8); Eosinophils % 0.1 % (0.00-10.9); Hematocrit 37.3 VOL% (35.7-47.0); Immature Granulocytes % 1.3 %; Lymphocytes # 0.6 10*3/uL (1.4-4.0); Lymphocytes % 2.4 % (21.3-54.2); Mean Corpuscular HGB Conc 32.2 GM/DL (32-36); Mean Corpuscular Hemoglobin 30 PG (27-34); Mean Corpuscular Volume 92.6 FL (87-102); Mean Platelet Volume 10.9 FL (9.6-12.0); Monocytes % 4.3 % (1.7-12.7); Neutrophils # 20.9 10*3/uL (1.4-7.4); Neutrophils % 91.8 % (38.7-73.9); Platelet Count 167 T/CUMM (130-400); Red Blood Count 4.03 MC/CUMM (3.8-5.5); Red Cell Distribution Width 14.8 % (9.3-17.3); White Blood Count 22.8 T/CUMM (4-12)
[2017-08-20 14:04] LABS: Lymphocytes 1 % (20-55); Platelet Estimate Adequate; Polychromasia Few; Segmented Neutrophils 98 % (50-85); Total Cells Counted 100
[2017-08-20] MEDS: hydrALAZINE 20 MG/1 ML VIAL IV PRN (20:06)
[2017-08-21] MEDS: cefTAZidime 1,000 MG in SYRINGE 1 EACH IV SCH ×3 (00:01→16:46)
[2017-08-21] MEDS: IPRATROPIUM 500 MCG/2.5 ML NEB RESP TX SCH ×4 (01:44→20:11)
[2017-08-21] MEDS: GENTAMICIN 0.3% OPH SOLN 5 ML BOTTLE BOTH EYES SCH ×6 (02:20→21:29)
[2017-08-21 02:48] LABS: ABG Base Excess 5.5 MMOL/L (-2.5-2.5); ABG HCO3 29.7 MMOL/L (20-26); ABG Oxygen Saturation 95.8 % (95-100); ABG PCO2 41.8 MM HG (35-48); ABG PH 7.469 (7.35-7.45); ABG PO2 81.3 MM HG (80-95)
[2017-08-21 04:44] LABS: Calcium 8.5 MG/DL (8.5-10.1); Osmolality,Calculated 304.6 MOS/KG (273-304); Potassium 4.9 MMOL/L (3.5-5.1)
[2017-08-21] MEDS: INSULIN REGULAR 100 UNIT/ML SUBCUT SCH ×3 (05:03→19:05)
[2017-08-21] MEDS: ALBUTEROL 2 MG TABLET PO SCH ×3 (06:24→21:33)
[2017-08-21] MEDS: LEVOTHYROXINE 100 MCG VIAL IV SCH (06:25)
[2017-08-21] MEDS: methylPREDNISolone SOD SUC 40 MG/1 ML VIAL IV SCH ×2 (06:27→14:10)
[2017-08-21] MEDS: TOBRAMYCIN 80 MG/2 ML VIAL RESP TX SCH ×2 (07:24→20:12)
[2017-08-21] MEDS: MONTELUKAST 10 MG TABLET PO SCH ×2 (09:54→21:29)
[2017-08-21] MEDS: ATORVASTATIN 40 MG TABLET PO SCH (09:54)
[2017-08-21] MEDS: amLODIPine 5 MG TABLET PO SCH (09:54)
[2017-08-21] MEDS: MULTIVITAMIN LIQUID (CENTRUM) 60 ML BOTTLE PER TUBE SCH (09:55)
[2017-08-21] MEDS: PANTOPRAZOLE 40 MG VIAL IV SCH ×2 (10:09→21:29)
[2017-08-21] MEDS: DESITIN 4OZ/NYSTATIN 15 GRAM MIXTURE PASTE TOP SCH ×2 (14:10→21:30)
[2017-08-21] MEDS: HYDROmorphone 2 MG/1 ML VIAL IV PRN (21:30)
[2017-08-22] MEDS: IPRATROPIUM 500 MCG/2.5 ML NEB RESP TX SCH ×3 (00:53→12:14)
[2017-08-22] MEDS: cefTAZidime 1,000 MG in SYRINGE 1 EACH IV SCH ×2 (01:06→09:26)
[2017-08-22] MEDS: methylPREDNISolone SOD SUC 40 MG/1 ML VIAL IV SCH ×2 (01:06→06:47)
[2017-08-22] MEDS: GENTAMICIN 0.3% OPH SOLN 5 ML BOTTLE BOTH EYES SCH ×3 (01:07→09:41)
[2017-08-22] MEDS: INSULIN REGULAR 100 UNIT/ML SUBCUT SCH ×2 (01:13→06:47)
[2017-08-22] MEDS: HYDROmorphone 2 MG/1 ML VIAL IV PRN (03:56)
[2017-08-22 04:04] LABS: Basophils % 0.1 % (0.0-0.8); Eosinophils % 0.1 % (0.00-10.9); Hematocrit 35.4 VOL% (35.7-47.0); Hemoglobin 11.6 GM/DL (12.0-16.0); Immature Granulocytes % 1.1 %; Immature Granulocytes Absolute 0.26 #; Lymphocytes # 0.4 10*3/uL (1.4-4.0); Lymphocytes % 1.7 % (21.3-54.2); Mean Corpuscular HGB Conc 32.8 GM/DL (32-36); Mean Corpuscular Hemoglobin 30 PG (27-34); Mean Corpuscular Volume 91.7 FL (87-102); Mean Platelet Volume 11.1 FL (9.6-12.0); Monocytes % 4.3 % (1.7-12.7); Neutrophils # 21.1 10*3/uL (1.4-7.4); Neutrophils % 92.7 % (38.7-73.9); Platelet Count 194 T/CUMM (130-400); Red Blood Count 3.86 MC/CUMM (3.8-5.5); Red Cell Distribution Width 15.4 % (9.3-17.3); White Blood Count 22.7 T/CUMM (4-12)
[2017-08-22 04:32] LABS: Prealbumin 31.8 MG/DL (20-40)
[2017-08-22 04:42] LABS: Segmented Neutrophils 98 % (50-85)
[2017-08-22 04:43] LABS: Platelet Estimate Normal
[2017-08-22 04:44] LABS: Total Cells Counted 100
[2017-08-22] MEDS: ALBUTEROL 2 MG TABLET PO SCH (06:46)
[2017-08-22] MEDS: ACETAMINOPHEN 325 MG TABLET PO PRN (06:46)
[2017-08-22] MEDS: LEVOTHYROXINE 100 MCG VIAL IV SCH (06:47)
[2017-08-22] MEDS: TOBRAMYCIN 80 MG/2 ML VIAL RESP TX SCH (07:16)
[2017-08-22 07:21] LABS: ABG Base Excess 4.4 MMOL/L (-2.5-2.5); ABG HCO3 28.3 MMOL/L (20-26); ABG Oxygen Saturation 98.2 % (95-100); ABG PCO2 51.5 MM HG (35-48); ABG PH 7.381 (7.35-7.45); ABG TCO2 27.4 MMOL/L (23-27)
[2017-08-22] MEDS: ATORVASTATIN 40 MG TABLET PO SCH (09:32)
[2017-08-22] MEDS: MONTELUKAST 10 MG TABLET PO SCH (09:32)
[2017-08-22] MEDS: amLODIPine 5 MG TABLET PO SCH (09:32)
[2017-08-22] MEDS: PANTOPRAZOLE 40 MG VIAL IV SCH (09:36)
[2017-08-22] MEDS: DESITIN 4OZ/NYSTATIN 15 GRAM MIXTURE PASTE TOP SCH (09:42)
[2017-08-22 16:42] VITALS: BP 103/71
[2017-08-22] MEDS ORDERED: MICAFUNGIN 100 MG in SODIUM CHLORIDE 0.9% 100 ML IV SCH (17:00)
== END 2017-08-22 16:08 | DRG 4 ==
LOC: N.ED 13:53 → SUATTDRO 15:39 → N.EDINP 15:39 → N.5E 16:32 → N.CC 08-02 16:10
PROVIDERS: ADMIT Internal Medicine Nephrology; ATTEND Internal Medicine
PROC: EGDWPEG (ICD-10-PCS; 2017-08-20 07:35)

== ENCOUNTER 2018-03-02 10:27 | Inpatient (IN) ==
[2018-03-02] MEDS ORDERED: cefTRIAXone 1,000 MG in SODIUM CHLORIDE 0.9% 100 ML IV STA (11:00)
[2018-03-02] MEDS ORDERED: ALBUTEROL/IPRATROPIUM 3 ML NEB RESP TX STA (11:00)
[2018-03-02] MEDS ORDERED: SODIUM CHLORIDE 0.9% 1,000 ML IV STA (11:00)
[2018-03-02 11:09] LABS: Basophils # 0.1 10*3/uL (0.0-0.2); Basophils % 0.3 % (0.0-0.8); Eosinophils # 0.1 10*3/uL (0.0-0.87); Eosinophils % 0.6 % (0.00-10.9); Hematocrit 32.7 VOL% (35.7-47.0); Hemoglobin 10.8 GM/DL (12.0-16.0); Immature Granulocytes % 0.5 %; Immature Granulocytes Absolute 0.08 #; Lymphocytes # 0.7 10*3/uL (1.4-4.0); Lymphocytes % 3.7 % (21.3-54.2); Mean Corpuscular Hemoglobin 30 PG (27-34); Mean Corpuscular Volume 91.3 FL (87-102); Mean Platelet Volume 8.5 FL (9.6-12.0); Monocytes # 0.9 10*3/uL (0.11-0.8); Monocytes % 4.8 % (1.7-12.7); Neutrophils # 15.9 10*3/uL (1.4-7.4); Neutrophils % 90.1 % (38.7-73.9); Platelet Count 437 T/CUMM (130-400); Red Blood Count 3.58 MC/CUMM (3.8-5.5); Red Cell Distribution Width 14.2 % (9.3-17.3); White Blood Count 17.7 T/CUMM (4-12)
[2018-03-02 11:27] LABS: Lactic Acid 1.5 MMOL/L (0.4-2.0)
[2018-03-02 11:28] LABS: Band Neutrophils 1 % (0-10); Eosinophils 2 % (0-10); Hypochromasia 1+; Lymphocytes 2 % (20-55); Platelet Estimate Increased; Segmented Neutrophils 91 % (50-85); Total Cells Counted 100
[2018-03-02 11:37] LABS: Alanine Aminotransferase 34 U/L (13-56); Albumin 3.6 G/DL (3.4-5.0); Alkaline Phosphatase 110 U/L (45-117); Aspartate Amino Transferase 23 U/L (0-37); Bilirubin,Total < 0.39 MG/DL (0.2-1.0); Blood Urea Nitrogen 26 MG/DL (7-18); Calcium 8.8 MG/DL (8.5-10.1); Glucose 107 MG/DL (74-106); Osmolality,Calculated 281.5 MOS/KG (273-304); Potassium 4.8 MMOL/L (3.5-5.1); Sodium 139 MMOL/L (136-145); Total Protein 7.5 G/DL (6.4-8.3)
[2018-03-02 11:39] LABS: Apearance,Urine CLEAR (Clear); Bacteria,Urine Occasional /HPF (Few); Bilirubin,Urine Negative (Negative); Blood, Urine Negative (Negative); Glucose,Urine (UA) Negative (Negative); Hyaline Casts,Urine 1 /LPF (0-3); Ketones,Urine Negative (Negative); Mucus,Urine Occasional /LPF (Occasional); Nitrite,Urine Negative (Negative); Protein,Urine Negative; RBC,Urine <1 /HPF (0-4); Squamous Epithelial Cell,Urine Occasional /HPF (0-10); Urine Color Yellow (Yellow); Urine Specific Gravity 1.008 (1.001-1.035); Urine Urobilinogen < 2.0 EU/DL (0.2-1.0); WBC,Urine <1 /HPF (0-6)
[2018-03-02] MEDS ORDERED: DOCUSATE SODIUM 100 MG CAPSULE PO PRN (12:41)
[2018-03-02] MEDS ORDERED: guaiFENesin/DM ER 600-30 MG TABLET PO PRN (12:41)
[2018-03-02] MEDS ORDERED: ACETAMINOPHEN 325 MG TABLET PO PRN ×2 (12:41→12:58)
[2018-03-02] MEDS ORDERED: BISACODYL 5 MG TABLET PO PRN (12:41)
[2018-03-02] MEDS ORDERED: ONDANSETRON 4 MG/2 ML VIAL IV PRN (12:41)
[2018-03-02] MEDS ORDERED: diphenhydrAMINE CAP 25 MG CAPSULE PO PRN (12:41)
[2018-03-02] MEDS ORDERED: traZODone 50 MG TABLET PO PRN (12:41)
[2018-03-02] MEDS ORDERED: MORPHINE ER 15 MG TABLET PO PRN (12:58)
[2018-03-02] MEDS ORDERED: ALBUTEROL 2.5 MG/3 ML NEB RESP TX PRN (12:58)
[2018-03-02] MEDS ORDERED: BISACODYL 10 MG SUPP RECTAL PRN (12:58)
[2018-03-02 13:11] LABS: Thyroid Stimulating Hormone 0.009 uIU/ml (0.358-3.74)
[2018-03-02] MEDS: ALBUTEROL/IPRATROPIUM 3 ML NEB RESP TX SCH ×2 (13:29→19:38)
[2018-03-02] MEDS: SODIUM CHLORIDE 0.9% 1,000 ML IV SCH (14:24)
[2018-03-02] MEDS: LEVOFLOXACIN INJ 750 MG in PREMIX 1 EACH IV SCH (14:30)
[2018-03-02] MEDS: FLUoxetine 20 MG CAPSULE PO SCH ×2 (16:26→22:10)
[2018-03-02] MEDS: methylPREDNISolone SOD SUC 40 MG/1 ML VIAL IV SCH ×2 (16:26→22:11)
[2018-03-02] MEDS: PANTOPRAZOLE 40 MG TABLET PO SCH (16:26)
[2018-03-02] MEDS: FLUTICASONE/SALMETEROL 500-50 DISKUS 14 DOSE INH SCH ×2 (16:26→22:03)
[2018-03-02] MEDS ORDERED: AZTREONAM 2,000 MG in SYRINGE 1 EACH IV SCH (17:00)
[2018-03-02] MEDS: DORNASE ALFA 2.5 MG/2.5 ML VIAL RESP TX SCH (19:38)
[2018-03-02] MEDS: MONTELUKAST 10 MG TABLET PO SCH (22:03)
[2018-03-02] MEDS: QUEtiapine 100 MG TABLET PO SCH (22:03)
[2018-03-02] MEDS: FAMOTIDINE 20 MG TABLET PO SCH (22:03)
[2018-03-02] MEDS: ZALEPLON 5 MG CAPSULE PO SCH (22:04)
[2018-03-02] MEDS: ENOXAPARIN 40 MG/0.4 ML SYRINGE SUBCUT SCH (22:16)
[2018-03-03] MEDS: ALBUTEROL/IPRATROPIUM 3 ML NEB RESP TX SCH ×4 (01:07→19:35)
[2018-03-03] MEDS: methylPREDNISolone SOD SUC 40 MG/1 ML VIAL IV SCH ×4 (03:16→21:39)
[2018-03-03] MEDS ORDERED: LEVOTHYROXINE 200 MCG TABLET PO SCH (06:30)
[2018-03-03] MEDS: SODIUM CHLORIDE 0.9% 1,000 ML IV SCH ×2 (06:59→10:47)
[2018-03-03] MEDS: DORNASE ALFA 2.5 MG/2.5 ML VIAL RESP TX SCH ×2 (07:21→19:35)
[2018-03-03 07:27] LABS: Basophils % 0.1 % (0.0-0.8); Eosinophils % 0.1 % (0.00-10.9); Hematocrit 28.8 VOL% (35.7-47.0); Hemoglobin 9.4 GM/DL (12.0-16.0); Immature Granulocytes % 0.7 %; Immature Granulocytes Absolute 0.12 #; Lymphocytes # 0.6 10*3/uL (1.4-4.0); Lymphocytes % 3.6 % (21.3-54.2); Mean Corpuscular HGB Conc 32.6 GM/DL (32-36); Mean Corpuscular Hemoglobin 30 PG (27-34); Mean Corpuscular Volume 91.1 FL (87-102); Mean Platelet Volume 9.6 FL (9.6-12.0); Monocytes # 0.1 10*3/uL (0.11-0.8); Monocytes % 0.9 % (1.7-12.7); Neutrophils # 15.4 10*3/uL (1.4-7.4); Neutrophils % 94.6 % (38.7-73.9); Platelet Count 350 T/CUMM (130-400); Red Blood Count 3.16 MC/CUMM (3.8-5.5); Red Cell Distribution Width 14.7 % (9.3-17.3); White Blood Count 16.2 T/CUMM (4-12)
[2018-03-03 07:41] LABS: Band Neutrophils 1 % (0-10); Hypochromasia 1+; Lymphocytes 2 % (20-55); Ovalocytes Slight; Platelet Estimate Adequate; Segmented Neutrophils 97 % (50-85); Total Cells Counted 100
[2018-03-03 08:23] LABS: Alanine Aminotransferase 29 U/L (13-56); Albumin 2.8 G/DL (3.4-5.0); Alkaline Phosphatase 95 U/L (45-117); Aspartate Amino Transferase 20 U/L (0-37); Bilirubin,Total < 0.39 MG/DL (0.2-1.0); Blood Urea Nitrogen 26 MG/DL (7-18); Calcium 8.8 MG/DL (8.5-10.1); Cholesterol 246 MG/DL (50-200); Glucose 160 MG/DL (74-106); HDL Cholesterol 74 MG/DL (40-60); Osmolality,Calculated 293.8 MOS/KG (273-304); Risk Ratio 3.32; Sodium 144 MMOL/L (136-145); Total Protein 7.2 G/DL (6.4-8.3); Triglycerides 49 MG/DL (2-150); VLDL CHOLESTEROL 9.8 MG/DL
[2018-03-03] MEDS: PANTOPRAZOLE 40 MG TABLET PO SCH (09:06)
[2018-03-03] MEDS: TOLTERODINE LA 4 MG CAPSULE PO SCH (09:06)
[2018-03-03] MEDS: ASPIRIN EC 81 MG TABLET PO SCH (09:06)
[2018-03-03] MEDS: NON-FORMULARY MEDICATION (Fluticasone/Vilanterol [Breo Ellipta 100-25 Mcg Inh] 1 PUFF) INH SCH (09:07)
[2018-03-03] MEDS: BIOTIN 5 MG PO SCH (09:07)
[2018-03-03] MEDS: MULTIVITAMIN (CENTRUM) TABLET PO SCH (09:07)
[2018-03-03] MEDS: QUEtiapine 25 MG TABLET PO SCH ×2 (09:07→11:44)
[2018-03-03] MEDS: FLUoxetine 20 MG CAPSULE PO SCH ×3 (09:07→21:39)
[2018-03-03] MEDS: FLUTICASONE/SALMETEROL 500-50 DISKUS 14 DOSE INH SCH ×2 (09:08→22:12)
[2018-03-03] MEDS: QUEtiapine 100 MG TABLET PO SCH (21:39)
[2018-03-03] MEDS: FAMOTIDINE 20 MG TABLET PO SCH (21:39)
[2018-03-03] MEDS: MONTELUKAST 10 MG TABLET PO SCH (21:39)
[2018-03-03] MEDS: ZALEPLON 5 MG CAPSULE PO SCH (21:39)
[2018-03-03] MEDS: cefTRIAXone 2,000 MG in SYRINGE 1 EACH IV SCH (21:41)
[2018-03-03] MEDS: ENOXAPARIN 40 MG/0.4 ML SYRINGE SUBCUT SCH (21:53)
[2018-03-04] MEDS: ALBUTEROL/IPRATROPIUM 3 ML NEB RESP TX SCH ×4 (00:30→19:15)
[2018-03-04] MEDS: methylPREDNISolone SOD SUC 40 MG/1 ML VIAL IV SCH ×4 (04:25→20:41)
[2018-03-04] MEDS: LEVOTHYROXINE 100 MCG TABLET PO SCH (06:22)
[2018-03-04] MEDS: DORNASE ALFA 2.5 MG/2.5 ML VIAL RESP TX SCH ×2 (07:28→19:15)
[2018-03-04] MEDS: TOLTERODINE LA 4 MG CAPSULE PO SCH (09:17)
[2018-03-04] MEDS: POTASSIUM CHLORIDE 8 MEQ CAPSULE PO SCH (09:18)
[2018-03-04] MEDS: QUEtiapine 25 MG TABLET PO SCH ×2 (09:18→11:17)
[2018-03-04] MEDS: ASPIRIN EC 81 MG TABLET PO SCH (09:18)
[2018-03-04] MEDS: FLUoxetine 20 MG CAPSULE PO SCH (09:18)
[2018-03-04] MEDS: PANTOPRAZOLE 40 MG TABLET PO SCH (09:18)
[2018-03-04] MEDS: FUROSEMIDE 20 MG TABLET PO SCH (09:18)
[2018-03-04] MEDS: FLUTICASONE/SALMETEROL 500-50 DISKUS 14 DOSE INH SCH ×2 (09:19→20:42)
[2018-03-04] MEDS: MULTIVITAMIN (CENTRUM) TABLET PO SCH (09:27)
[2018-03-04] MEDS: BIOTIN 5 MG PO SCH (09:27)
[2018-03-04] MEDS: NON-FORMULARY MEDICATION (Fluticasone/Vilanterol [Breo Ellipta 100-25 Mcg Inh] 1 PUFF) INH SCH (09:27)
[2018-03-04] MEDS: LEVOFLOXACIN INJ 750 MG in PREMIX 1 EACH IV SCH (15:55)
[2018-03-04] MEDS: cefTRIAXone 2,000 MG in SYRINGE 1 EACH IV SCH (20:40)
[2018-03-04] MEDS: ZALEPLON 5 MG CAPSULE PO SCH (20:41)
[2018-03-04] MEDS: QUEtiapine 100 MG TABLET PO SCH (20:41)
[2018-03-04] MEDS: FAMOTIDINE 20 MG TABLET PO SCH (20:41)
[2018-03-04] MEDS: MONTELUKAST 10 MG TABLET PO SCH (20:41)
[2018-03-04] MEDS: ENOXAPARIN 40 MG/0.4 ML SYRINGE SUBCUT SCH (20:42)
[2018-03-04] MEDS: LORazepam 1 MG TABLET PO PRN (22:03)
[2018-03-05] MEDS: ALBUTEROL/IPRATROPIUM 3 ML NEB RESP TX SCH ×4 (00:40→18:59)
[2018-03-05] MEDS: methylPREDNISolone SOD SUC 40 MG/1 ML VIAL IV SCH (03:51)
[2018-03-05] MEDS: LEVOTHYROXINE 100 MCG TABLET PO SCH (05:39)
[2018-03-05] MEDS: DORNASE ALFA 2.5 MG/2.5 ML VIAL RESP TX SCH ×2 (06:57→18:59)
[2018-03-05] MEDS: MULTIVITAMIN (CENTRUM) TABLET PO SCH (08:39)
[2018-03-05] MEDS: TOLTERODINE LA 4 MG CAPSULE PO SCH (08:41)
[2018-03-05] MEDS: FLUoxetine 20 MG CAPSULE PO SCH (08:41)
[2018-03-05] MEDS: PANTOPRAZOLE 40 MG TABLET PO SCH (08:42)
[2018-03-05] MEDS: ASPIRIN EC 81 MG TABLET PO SCH (08:42)
[2018-03-05] MEDS: QUEtiapine 25 MG TABLET PO SCH ×2 (08:42→13:09)
[2018-03-05] MEDS: FLUTICASONE/SALMETEROL 500-50 DISKUS 14 DOSE INH SCH ×2 (08:43→22:04)
[2018-03-05] MEDS: predniSONE 10 MG TABLET PO SCH (08:47)
[2018-03-05] MEDS: LORazepam 1 MG TABLET PO PRN ×2 (10:23→22:02)
[2018-03-05] MEDS: BIOTIN 5 MG PO SCH (11:18)
[2018-03-05] MEDS: NON-FORMULARY MEDICATION (Fluticasone/Vilanterol [Breo Ellipta 100-25 Mcg Inh] 1 PUFF) INH SCH (11:19)
[2018-03-05] MEDS: ACYCLOVIR 5% OINT 5 GM TUBE TOP SCH ×2 (11:20→22:01)
[2018-03-05] MEDS: FAMOTIDINE 20 MG TABLET PO SCH (22:01)
[2018-03-05] MEDS: ZALEPLON 5 MG CAPSULE PO SCH (22:01)
[2018-03-05] MEDS: MONTELUKAST 10 MG TABLET PO SCH (22:02)
[2018-03-05] MEDS: ENOXAPARIN 40 MG/0.4 ML SYRINGE SUBCUT SCH (22:04)
[2018-03-05] MEDS: cefTRIAXone 2,000 MG in SYRINGE 1 EACH IV SCH (22:07)
[2018-03-05] MEDS: QUEtiapine 100 MG TABLET PO SCH (22:07)
[2018-03-06] MEDS: ALBUTEROL/IPRATROPIUM 3 ML NEB RESP TX SCH ×4 (05:26→19:43)
[2018-03-06] MEDS: LEVOTHYROXINE 100 MCG TABLET PO SCH (06:28)
[2018-03-06] MEDS: DORNASE ALFA 2.5 MG/2.5 ML VIAL RESP TX SCH ×2 (07:57→19:43)
[2018-03-06] MEDS: MULTIVITAMIN (CENTRUM) TABLET PO SCH (08:15)
[2018-03-06] MEDS: POTASSIUM CHLORIDE 8 MEQ CAPSULE PO SCH (08:44)
[2018-03-06] MEDS: FLUoxetine 20 MG CAPSULE PO SCH (08:44)
[2018-03-06] MEDS: predniSONE 10 MG TABLET PO SCH (08:45)
[2018-03-06] MEDS: ASPIRIN EC 81 MG TABLET PO SCH (08:45)
[2018-03-06] MEDS: FUROSEMIDE 20 MG TABLET PO SCH (08:45)
[2018-03-06] MEDS: QUEtiapine 25 MG TABLET PO SCH ×2 (08:46→12:15)
[2018-03-06] MEDS: PANTOPRAZOLE 40 MG TABLET PO SCH (08:47)
[2018-03-06] MEDS: ACYCLOVIR 5% OINT 5 GM TUBE TOP SCH ×2 (08:48→21:05)
[2018-03-06] MEDS: FLUTICASONE/SALMETEROL 500-50 DISKUS 14 DOSE INH SCH ×2 (08:48→21:04)
[2018-03-06] MEDS: TOLTERODINE LA 4 MG CAPSULE PO SCH (08:55)
[2018-03-06 14:17] LABS: Apearance,Urine CLEAR (Clear); Bilirubin,Urine Negative (Negative); Blood, Urine Negative (Negative); Glucose,Urine (UA) Negative (Negative); Ketones,Urine Negative (Negative); Nitrite,Urine Negative (Negative); Protein,Urine Negative; RBC,Urine 1 /HPF (0-4); Renal Epithelial Cells,Urine Occasional /HPF (<1); Squamous Epithelial Cell,Urine Occasional /HPF (0-10); Urine Color Straw (Yellow); Urine Specific Gravity 1.012 (1.001-1.035); Urine Urobilinogen < 2.0 EU/DL (0.2-1.0); WBC,Urine 6 /HPF (0-6)
[2018-03-06] MEDS: BIOTIN 5 MG PO SCH (14:24)
[2018-03-06] MEDS: NON-FORMULARY MEDICATION (Fluticasone/Vilanterol [Breo Ellipta 100-25 Mcg Inh] 1 PUFF) INH SCH (14:24)
[2018-03-06] MEDS: LEVOFLOXACIN INJ 750 MG in PREMIX 1 EACH IV SCH (15:57)
[2018-03-06] MEDS: MONTELUKAST 10 MG TABLET PO SCH (21:02)
[2018-03-06] MEDS: ENOXAPARIN 40 MG/0.4 ML SYRINGE SUBCUT SCH (21:02)
[2018-03-06] MEDS: ZALEPLON 5 MG CAPSULE PO SCH (21:02)
[2018-03-06] MEDS: QUEtiapine 100 MG TABLET PO SCH (21:02)
[2018-03-06] MEDS: LORazepam 1 MG TABLET PO PRN (21:03)
[2018-03-06] MEDS: cefTRIAXone 2,000 MG in SYRINGE 1 EACH IV SCH (21:08)
[2018-03-06] MEDS: FAMOTIDINE 20 MG TABLET PO SCH (21:20)
[2018-03-07] MEDS: ALBUTEROL/IPRATROPIUM 3 ML NEB RESP TX SCH ×2 (00:01→07:22)
[2018-03-07] MEDS: LEVOTHYROXINE 100 MCG TABLET PO SCH (06:41)
[2018-03-07 08:37] VITALS: BP 152/85
[2018-03-07] MEDS: FLUoxetine 20 MG CAPSULE PO SCH (09:59)
[2018-03-07] MEDS: PANTOPRAZOLE 40 MG TABLET PO SCH (10:00)
[2018-03-07] MEDS: ASPIRIN EC 81 MG TABLET PO SCH (10:00)
[2018-03-07] MEDS: predniSONE 10 MG TABLET PO SCH (10:00)
[2018-03-07] MEDS: TOLTERODINE LA 4 MG CAPSULE PO SCH (10:01)
[2018-03-07] MEDS: QUEtiapine 25 MG TABLET PO SCH (10:01)
[2018-03-07] MEDS: MULTIVITAMIN (CENTRUM) TABLET PO SCH (10:01)
[2018-03-07] MEDS: FLUTICASONE/SALMETEROL 500-50 DISKUS 14 DOSE INH SCH (10:06)
[2018-03-07] MEDS: NON-FORMULARY MEDICATION (Fluticasone/Vilanterol [Breo Ellipta 100-25 Mcg Inh] 1 PUFF) INH SCH (10:06)
[2018-03-07] MEDS: BIOTIN 5 MG PO SCH (10:06)
[2018-03-07] MEDS: ACYCLOVIR 5% OINT 5 GM TUBE TOP SCH (10:07)
== END 2018-03-07 10:40 | disposition hospice, home (50) | DRG 193 ==
LOC: N.ED 10:27 → N.EDINP 12:41 → SUATTDRO 12:42 → N.5E 13:28
PROVIDERS: ADMIT Hospitalist

== ENCOUNTER 2022-02-09 10:16 | Inpatient (IN) ==
[2022-02-09 11:28] LABS: Basophils % 0.2 % (0.0-0.8); Eosinophils % 0.1 % (0.00-10.9); Hematocrit 35.1 VOL% (35.7-47.0); Hemoglobin 11.3 GM/DL (12.0-16.0); Immature Granulocytes % 0.5 %; Immature Granulocytes Absolute 0.08 #; Lymphocytes # 0.7 10*3/uL (1.4-4.0); Lymphocytes % 4.5 % (21.3-54.2); Mean Corpuscular HGB Conc 32.2 GM/DL (32-36); Mean Corpuscular Volume 94.6 FL (87-102); Mean Platelet Volume 8.8 FL (9.6-12.0); Monocytes # 0.9 10*3/uL (0.11-0.8); Monocytes % 5.5 % (1.7-12.7); Neutrophils % 89.2 % (38.7-73.9); Platelet Count 358 T/CUMM (130-400); Red Blood Count 3.71 MC/CUMM (3.8-5.5); Red Cell Distribution Width 12.5 % (9.3-17.3); White Blood Count 15.9 T/CUMM (4-12)
[2022-02-09 11:43] LABS: Albumin 3.4 G/DL (3.4-5.0); Bilirubin,Total 0.4 MG/DL (0.20-1.00); Calcium 9.3 MG/DL (8.5-10.1); Osmolality,Calculated 287.1 MOS/KG (273-304); Potassium 3.7 MMOL/L (3.5-5.1); Total Protein 6.9 G/DL (6.4-8.2)
[2022-02-09 12:35] LABS: Anisocytosis Slight; Band Neutrophils 2 % (0-10); Lymphocytes 3 % (20-55); Total Cells Counted 100
[2022-02-09 12:36] LABS: Platelet Estimate Adequate
[2022-02-09 12:44] LABS: Bacteria,Urine Occasional /HPF (Few); Mucus,Urine Many /LPF (Occasional); Squamous Epithelial Cell,Urine Few /HPF (0-10); Urine Color DARK YELLOW (Yellow)
[2022-02-09 12:45] LABS: Bilirubin,Urine Small mg/dL (Negative); Blood, Urine Trace mg/dL (Negative); Glucose,Urine (UA) 100 mg/dL (Negative); Ketones,Urine 15 mg/dL (Negative); Nitrite,Urine Positive (Negative); Protein,Urine 100 mg/dL (Negative); Urine Appearance SLIGHTLY CLOUDY (Clear); Urine Specific Gravity 1.015 (1.001-1.035); Urine pH 5.5 (4.5-8.0)
[2022-02-09] MEDS ORDERED: ACETAMINOPHEN 325 MG TABLET PO PRN (14:24)
[2022-02-09] MEDS ORDERED: AZITHROMYCIN INJ 500 MG in SODIUM CHLORIDE 0.9% 250 ML IV STA ×2 (14:24→21:30)
[2022-02-09] MEDS ORDERED: DOCUSATE SODIUM 100 MG CAPSULE PO PRN (14:24)
[2022-02-09] MEDS ORDERED: GLUCAGON 1 MG VIAL IM PRN (14:24)
[2022-02-09] MEDS ORDERED: ONDANSETRON 4 MG/2 ML VIAL IV PRN (14:24)
[2022-02-09] MEDS ORDERED: cefTRIAXone 1,000 MG in SODIUM CHLORIDE 0.9% 100 ML IV STA (14:24)
[2022-02-09] MEDS ORDERED: DEXTROSE 10% 250 ML BAG IV PRN (14:32)
[2022-02-09] MEDS: SODIUM CHLORIDE 0.45% 1,000 ML IV SCH (17:15)
[2022-02-09] MEDS: INSULIN LISPRO 100 UNIT/ML SUBCUT SCH ×2 (18:16→21:02)
[2022-02-09] MEDS: ALBUTEROL/IPRATROPIUM 3 ML NEB RESP TX SCH (20:23)
[2022-02-09] MEDS: ENOXAPARIN 40 MG/0.4 ML SYRINGE SUBCUT SCH (22:02)
[2022-02-09] MEDS: ZALEPLON 5 MG CAPSULE PO PRN (23:03)
[2022-02-10] MEDS: ALBUTEROL/IPRATROPIUM 3 ML NEB RESP TX SCH ×6 (00:34→19:39)
[2022-02-10 04:59] LABS: Basophils % 0.1 % (0.0-0.8); Eosinophils % 0.1 % (0.00-10.9); Hematocrit 31.1 VOL% (35.7-47.0); Hemoglobin 10.2 GM/DL (12.0-16.0); Immature Granulocytes % 0.5 %; Immature Granulocytes Absolute 0.08 #; Lymphocytes # 0.9 10*3/uL (1.4-4.0); Lymphocytes % 5.5 % (21.3-54.2); Mean Corpuscular HGB Conc 32.8 GM/DL (32-36); Mean Corpuscular Volume 94.8 FL (87-102); Mean Platelet Volume 8.7 FL (9.6-12.0); Monocytes # 0.9 10*3/uL (0.11-0.8); Monocytes % 5.6 % (1.7-12.7); Neutrophils % 88.2 % (38.7-73.9); Platelet Count 334 T/CUMM (130-400); Red Blood Count 3.28 MC/CUMM (3.8-5.5); Red Cell Distribution Width 12.8 % (9.3-17.3); White Blood Count 16.2 T/CUMM (4-12)
[2022-02-10 05:17] LABS: Calcium 9.2 MG/DL (8.5-10.1); Osmolality,Calculated 276.7 MOS/KG (273-304); Potassium 3.4 MMOL/L (3.5-5.1)
[2022-02-10] MEDS: SODIUM CHLORIDE 0.45% 1,000 ML IV SCH ×2 (07:47→17:09)
[2022-02-10] MEDS: INSULIN LISPRO 100 UNIT/ML SUBCUT SCH ×4 (08:47→22:34)
[2022-02-10] MEDS ORDERED: LORazepam 0.5 MG TABLET PO PRN (09:07)
[2022-02-10] MEDS ORDERED: FUROSEMIDE 20 MG TABLET PO PRN (09:07)
[2022-02-10] MEDS ORDERED: ONDANSETRON 4 MG TABLET PO PRN (09:07)
[2022-02-10] MEDS ORDERED: PHENYLEPHRINE PO PRN (09:15)
[2022-02-10] MEDS ORDERED: DEXTROMETHORPHAN PO PRN (09:15)
[2022-02-10] MEDS ORDERED: CHLORPHENIRAMINE PO PRN (09:15)
[2022-02-10] MEDS: POTASSIUM BICARB EFFERVESCENT 20 MEQ TAB.EFF PO SCH ×2 (10:16→22:34)
[2022-02-10] MEDS: LEVOTHYROXINE 150 MCG TABLET PO SCH (10:17)
[2022-02-10] MEDS: ASPIRIN EC 81 MG TABLET PO SCH (10:17)
[2022-02-10] MEDS: Fluticasone-Umeclidin-Vilanter [Trelegy Ellipta] 100-62.5-25 mcg INH SCH (12:17)
[2022-02-10] MEDS: cefTRIAXone 1,000 MG in SODIUM CHLORIDE 0.9% 100 ML IV SCH (13:26)
[2022-02-10] MEDS: oxyCODONE/ACETAMINOPHEN 5-325 MG TABLET PO PRN ×2 (13:26→19:26)
[2022-02-10] MEDS ORDERED: ZOLPIDEM 10 MG PO SCH (21:00)
[2022-02-10] MEDS: FAMOTIDINE 20 MG TABLET PO SCH (21:08)
[2022-02-10] MEDS: QUEtiapine 100 MG TABLET PO SCH (21:08)
[2022-02-10] MEDS: MELATONIN 3 MG TABLET PO SCH (21:08)
[2022-02-10] MEDS: MONTELUKAST 10 MG TABLET PO SCH (21:08)
[2022-02-10] MEDS: AZITHROMYCIN INJ 500 MG in SODIUM CHLORIDE 0.9% 250 ML IV SCH (21:10)
[2022-02-10] MEDS: ENOXAPARIN 40 MG/0.4 ML SYRINGE SUBCUT SCH (22:34)
[2022-02-11] MEDS: ALBUTEROL/IPRATROPIUM 3 ML NEB RESP TX SCH ×4 (00:28→19:20)
[2022-02-11] MEDS: oxyCODONE/ACETAMINOPHEN 5-325 MG TABLET PO PRN ×3 (03:59→17:24)
[2022-02-11 06:01] LABS: Basophils % 0.2 % (0.0-0.8); Eosinophils # 0.2 10*3/uL (0.0-0.87); Eosinophils % 1.6 % (0.00-10.9); Hematocrit 29.3 VOL% (35.7-47.0); Hemoglobin 9.4 GM/DL (12.0-16.0); Immature Granulocytes % 0.7 %; Immature Granulocytes Absolute 0.08 #; Lymphocytes # 0.7 10*3/uL (1.4-4.0); Lymphocytes % 5.8 % (21.3-54.2); Mean Corpuscular HGB Conc 32.1 GM/DL (32-36); Mean Corpuscular Volume 96.1 FL (87-102); Monocytes # 0.9 10*3/uL (0.11-0.8); Monocytes % 7.4 % (1.7-12.7); Neutrophils % 84.3 % (38.7-73.9); Platelet Count 343 T/CUMM (130-400); Red Blood Count 3.05 MC/CUMM (3.8-5.5); Red Cell Distribution Width 12.8 % (9.3-17.3); White Blood Count 12.2 T/CUMM (4-12)
[2022-02-11] MEDS: LEVOTHYROXINE 150 MCG TABLET PO SCH (06:10)
[2022-02-11 06:25] LABS: Calcium 8.6 MG/DL (8.5-10.1)
[2022-02-11] MEDS ORDERED: POTASSIUM CHLORIDE 20 MEQ TABLET PO ONE (09:15)
[2022-02-11] MEDS: FLUoxetine 20 MG CAPSULE PO SCH (09:33)
[2022-02-11] MEDS: SODIUM CHLORIDE 0.45% 1,000 ML IV SCH ×2 (09:33→21:19)
[2022-02-11] MEDS: INSULIN LISPRO 100 UNIT/ML SUBCUT SCH ×4 (09:34→21:13)
[2022-02-11] MEDS: MULTIVITAMIN (CENTRUM) TABLET PO SCH (09:34)
[2022-02-11] MEDS: ASPIRIN EC 81 MG TABLET PO SCH (10:06)
[2022-02-11] MEDS: Fluticasone-Umeclidin-Vilanter [Trelegy Ellipta] 100-62.5-25 mcg INH SCH (10:06)
[2022-02-11] MEDS: cefTRIAXone 1,000 MG in SODIUM CHLORIDE 0.9% 100 ML IV SCH (14:48)
[2022-02-11] MEDS: QUEtiapine 100 MG TABLET PO SCH (21:16)
[2022-02-11] MEDS: MONTELUKAST 10 MG TABLET PO SCH (21:16)
[2022-02-11] MEDS: FAMOTIDINE 20 MG TABLET PO SCH (21:16)
[2022-02-11] MEDS: ENOXAPARIN 40 MG/0.4 ML SYRINGE SUBCUT SCH (21:16)
[2022-02-11] MEDS: MELATONIN 3 MG TABLET PO SCH (21:16)
[2022-02-11] MEDS: AZITHROMYCIN INJ 500 MG in SODIUM CHLORIDE 0.9% 250 ML IV SCH (21:18)
[2022-02-12] MEDS: ALBUTEROL/IPRATROPIUM 3 ML NEB RESP TX SCH ×4 (00:01→19:37)
[2022-02-12] MEDS: ZALEPLON 5 MG CAPSULE PO PRN ×2 (01:07→20:14)
[2022-02-12] MEDS: oxyCODONE/ACETAMINOPHEN 5-325 MG TABLET PO PRN ×2 (01:07→15:18)
[2022-02-12] MEDS: LEVOTHYROXINE 150 MCG TABLET PO SCH (06:37)
[2022-02-12] MEDS: INSULIN LISPRO 100 UNIT/ML SUBCUT SCH ×4 (08:08→20:14)
[2022-02-12] MEDS: ASPIRIN EC 81 MG TABLET PO SCH (09:45)
[2022-02-12] MEDS: FLUoxetine 20 MG CAPSULE PO SCH (09:48)
[2022-02-12] MEDS: Fluticasone-Umeclidin-Vilanter [Trelegy Ellipta] 100-62.5-25 mcg INH SCH (09:48)
[2022-02-12] MEDS: MULTIVITAMIN (CENTRUM) TABLET PO SCH (09:48)
[2022-02-12] MEDS: cefTRIAXone 1,000 MG in SODIUM CHLORIDE 0.9% 100 ML IV SCH (10:45)
[2022-02-12] MEDS: AZITHROMYCIN 250 MG TABLET PO SCH (10:46)
[2022-02-12] MEDS: SODIUM CHLORIDE 0.45% 1,000 ML IV SCH (10:46)
[2022-02-12] MEDS ORDERED: methylPREDNISolone SOD SUC 40 MG/1 ML VIAL IV SCH (11:30)
[2022-02-12] MEDS: FAMOTIDINE 20 MG TABLET PO SCH (20:13)
[2022-02-12] MEDS: QUEtiapine 100 MG TABLET PO SCH (20:13)
[2022-02-12] MEDS: predniSONE 20 MG TABLET PO SCH (20:14)
[2022-02-12] MEDS: ENOXAPARIN 40 MG/0.4 ML SYRINGE SUBCUT SCH (20:14)
[2022-02-12] MEDS: MONTELUKAST 10 MG TABLET PO SCH (20:14)
[2022-02-12] MEDS: MELATONIN 3 MG TABLET PO SCH (20:14)
[2022-02-13] MEDS: ALBUTEROL/IPRATROPIUM 3 ML NEB RESP TX SCH ×3 (00:19→07:45)
[2022-02-13] MEDS: SODIUM CHLORIDE 0.45% 1,000 ML IV SCH ×2 (02:17→13:38)
[2022-02-13] MEDS: oxyCODONE/ACETAMINOPHEN 5-325 MG TABLET PO PRN (04:22)
[2022-02-13] MEDS: LEVOTHYROXINE 150 MCG TABLET PO SCH (06:27)
[2022-02-13 08:11] LABS: Basophils % 0.1 % (0.0-0.8); Hematocrit 30.6 VOL% (35.7-47.0); Immature Granulocytes % 1.2 %; Immature Granulocytes Absolute 0.14 #; Lymphocytes # 0.7 10*3/uL (1.4-4.0); Lymphocytes % 5.8 % (21.3-54.2); Mean Corpuscular HGB Conc 32.7 GM/DL (32-36); Mean Corpuscular Volume 93.3 FL (87-102); Mean Platelet Volume 8.7 FL (9.6-12.0); Monocytes # 0.5 10*3/uL (0.11-0.8); Monocytes % 3.8 % (1.7-12.7); Neutrophils % 89.1 % (38.7-73.9); Platelet Count 448 T/CUMM (130-400); Red Blood Count 3.28 MC/CUMM (3.8-5.5); Red Cell Distribution Width 12.8 % (9.3-17.3); White Blood Count 12.1 T/CUMM (4-12)
[2022-02-13] MEDS: INSULIN LISPRO 100 UNIT/ML SUBCUT SCH ×2 (08:12→12:25)
[2022-02-13 08:31] LABS: Calcium 9.1 MG/DL (8.5-10.1); Osmolality,Calculated 285.1 MOS/KG (273-304); Potassium 3.9 MMOL/L (3.5-5.1)
[2022-02-13] MEDS ORDERED: POTASSIUM CHLORIDE 20 MEQ TABLET PO ONE (09:00)
[2022-02-13] MEDS: Fluticasone-Umeclidin-Vilanter [Trelegy Ellipta] 100-62.5-25 mcg INH SCH (09:50)
[2022-02-13] MEDS: FLUoxetine 20 MG CAPSULE PO SCH (09:50)
[2022-02-13] MEDS: ASPIRIN EC 81 MG TABLET PO SCH (09:50)
[2022-02-13] MEDS: MULTIVITAMIN (CENTRUM) TABLET PO SCH (09:50)
[2022-02-13] MEDS: predniSONE 20 MG TABLET PO SCH (09:50)
[2022-02-13] MEDS: cefTRIAXone 1,000 MG in SODIUM CHLORIDE 0.9% 100 ML IV SCH (09:51)
[2022-02-13] MEDS: AZITHROMYCIN 250 MG TABLET PO SCH (09:51)
[2022-02-13 11:59] VITALS: BP 154/88
== END 2022-02-13 14:19 | disposition home health service (06) | DRG 194 ==
LOC: N.ED 10:16 → N.EDINP 14:24 → SUATTDRO 14:24 → N.5E 18:01
PROVIDERS: ADMIT Internal Medicine; ATTEND Internal Medicine